=== PATIENT | female | born 1950 | race Caucasian/White ===

== ENCOUNTER 2021-02-01 18:52 | Emergency (ER) | payer MEDICARE, SELFPAY ==
--- NOTE | ~2021-02-01 | CT_ITS ---
EXAMINATION: CT brain wo con DATE: 02/01/2021 19:48 INDICATION: Face injury. Neck pain. TECHNIQUE: Computed tomography (CT) of the head was performed without intravenous contrast. The mA wa s adjusted according to patient size. Iterative reconstruction technique was employed. The dose-lengt h product was 605.33 mGy-cm. COMPARISON: None FINDINGS: There is a prominent perivascular space in the right basal ganglia. There is no intracrania l hemorrhage, acute infarction, or abnormal intracranial mass lesion. The ventricles are normal in si ze. The paranasal sinuses are clear. The orbits are normal. There is forehead soft tissue swelling. T he mastoid air cells are normal. IMPRESSION: 1. Normal brain. Reviewed, dictated and finalized at location A. IMPRESSION: 1. Normal brain.
--- NOTE | ~2021-02-01 | CT_ITS ---
EXAMINATION: CT facial & cervical spine wo DATE: 02/01/2021 19:51 INDICATION: Face injury. Neck pain. TECHNIQUE: Computed tomography (CT) of the maxillofacial region and cervical spine was performed with out intravenous contrast. Automated exposure control and iterative reconstruction technique were empl oyed. The dose-length product was 118.86 mGy-cm. COMPARISON: None FINDINGS: MAXILLOFACIAL CT: There is forehead soft tissue swelling. There is leftward deviation of the nasal septum. There is cer umen in the external auditory canals. Dental disease is noted. There are ununited fractures of the na srinivas bones. CERVICAL SPINE CT: There is 3 degrees dextrocurvature of cervical spine. There is 2 mm anterolisthesis of C5 on C6 and C 7 on T1. There is a benign bone island in T1 vertebral body. There is mildly decreased disc height at C2-C3 and severely decreased disc height from C3-C4 through C7-T1. The following disc levels are spe cifically discussed: C2-C3: There is mild right and moderate left uncovertebral joint osteoarthritis. There is mild right facet joint osteoarthritis. There is ankylosis of left facet joint. There is mild left neural foramin al stenosis. There is no central canal stenosis. C3-C4: There is severe bilateral uncovertebral joint osteoarthritis. There is severe bilateral facet joint osteoarthritis. There is mild bilateral neural foraminal stenosis. There is mild central canal stenosis. C4-C5: There is severe bilateral uncovertebral joint osteoarthritis. There is moderate right and lynn re left facet joint osteoarthritis. There is mild bilateral neural foraminal stenosis. There is mild central canal stenosis. C5-C6: There is severe bilateral uncovertebral joint osteoarthritis. There is severe bilateral facet joint osteoarthritis. There is moderate right and mild left neural foraminal stenosis. There is mild central canal stenosis. C6-C7: There is severe bilateral uncovertebral joint osteoarthritis. There is moderate right and mild left facet joint osteoarthritis. There is mild bilateral neural foraminal stenosis. There is mild ce ntral canal stenosis. C7-T1: There is mild right and severe left uncovertebral joint osteoarthritis. There is severe bilate ral facet joint osteoarthritis. There is mild bilateral neural foraminal stenosis. There is mild cent ral canal stenosis. IMPRESSION: 1. 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 2. Severe cervical spondylosis. Reviewed, dictated and finalized at location A.
[2021-02-01 18:53] VITALS: BP 151/88; PULSE 110; RESP 20; TEMP 36.4; O2SAT 100
--- NOTE | 2021-02-01 19:36 | ED.FALL ---
HPI - Fall General Chief Complaint: Fall Stated Complaint: fall, facial abrasions Time Seen by Provider: 02/01/21 19:04 Source: patient Mode of arrival: ambulatory Limitations: no limitations History of Present Illness HPI Narrative: Patient is a 70-year-old female who presents after a fall. Patient reports trip and fall hitting face on concrete. She denies LOC. She is not on anticoagulants. Patient noted to have multiple abrasions to face. Denies taking [id number] medications prior to arrival. Denies significant medical history. MD complaint: fall Related Data Home Medications Medication Instructions Recorded Confirmed No Home Medications 02/01/21 02/01/21 Allergies Allergy/AdvReac Type Severity Reaction Status Date / Time No Known Allergies Allergy Verified 02/01/21 19:02 Review of Systems Review of Systems: Narrative: CONSTITUTIONAL: Denies fever, chills, or sweats. EYES: Denies visual changes, redness, or discharge. ENT: Denies rhinorrhea, congestion, sore throat, or otalgia. CARDIOVASCULAR: Denies chest pain, palpitations, or edema. RESPIRATORY: Denies cough or dyspnea. GASTROINTESTINAL: Denies abdominal pain, nausea, vomiting, or diarrhea. GENITOURINARY: Denies dysuria or hematuria. SKIN: Reports tenderness to face MUSCULOSKELETAL: Denies back pain, joint pain, or myalgia. NEUROLOGIC: Denies headache, numbness, dizziness, or weakness. PSYCHIATRIC: Denies anxiety or depression. PMFSH Past Medical History Medical History (Updated 02/01/21 @ 20:33 by GUANACO Cruz) No significant past medical history Surgical History Surgical History (Updated 02/01/21 @ 19:40 by GUANACO Cruz) No significant past surgical history Social History Social History (Updated 02/01/21 @ 19:41 by GUANACO Cruz) Smoking status: Former smoker Alcohol intake: never Substance use: never Living arrangements: with family Gender identity (if verbalized by the patient): Female Comments At the time of signature, I have reviewed and agree with nursing past medical, surgical, social, and family history unless otherwise noted. Please see nursing chart for further information. There is no relevant family history pertinent to the presenting complaint. Exam Narrative: Exam Narrative: GENERAL: Well-appearing, well-nourished, and in no acute distress. HEAD: Normocephalic, atraumatic. EYES: EOMI. No redness or drainage. Conjunctiva are normal. ENT: Mucous membranes pink and moist. Nares clear. No rhinorrhea. TMs normal bilaterally. Throat normal. Uvula midline. NECK: AROM. Supple. No lymphadenopathy. CHEST: No respiratory distress. Clear to auscultation. HEART: Regular rate and rhythm. No murmur appreciated. Normal peripheral pulses. GI: Soft, nontender without rebound, or guarding. No distention. Bowel sounds normal in all quadrants. MUSCULOSKELETAL: No bony tenderness. EXTREMITIES: Normal range of motion. No edema. SKIN: Warm, dry, no rash. NEURO: No focal deficits. Alert and oriented x3. Gait steady. PSYCH: Normal affect. No signs of depression or anxiety. Course Vital Signs Vital signs: Vital Signs Temperature 36.4 C L 02/01/21 18:53 Pulse Rate 110 H 02/01/21 18:53 Respiratory Rate 20 02/01/21 18:53 Blood Pressure 151/88 H 02/01/21 18:53 Pulse Oximetry 100 02/01/21 18:53 Temperature 36.4 C L 02/01/21 18:53 Pulse Rate 71 02/01/21 19:59 Respiratory Rate 20 02/01/21 18:53 Blood Pressure 156/73 H 02/01/21 19:59 Pulse Oximetry 98 02/01/21 19:59 MDM - Fall MDM Narrative Medical decision making narrative: Patient CT shows no acute injury. Wounds cleansed, antibiotic ointment applied. Patient is stable for discharge to home with outpatient follow-up. Discussed patient's need for follow-up with PCP because of blood pressure as well. Patient agrees with plan of care. Differential Diagnosis Differential diagnosis: Likely other (Lac
[2021-02-01] MEDS: TETANUS,DIPHTHERIA,AC PERTUSSIS ADULT (0.5 ML) BOOSTRIX IM (19:56)
[2021-02-01 19:59] VITALS: BP 156/73; PULSE 71; O2SAT 98
== END 2021-02-01 20:46 | disposition home or self-care (01) ==
PROVIDERS: Emergency Provider Nurse Practitioner; PCP Family Medicine
DX: S00.81XA Abrasion of other part of head, initial encounter (principal); Z87.891 Personal history of nicotine dependence; Z23 Encounter for immunization; M47.812 Spondylosis without myelopathy or radiculopathy, cervical region; R93.0 Abnormal findings on diagnostic imaging of skull and head, not elsewhere classified; W01.0XXA Fall on same level from slipping, tripping and stumbling without subsequent striking against object, initial encounter; R03.0 Elevated blood-pressure reading, without diagnosis of hypertension
CPT/HCPCS: 70450; 70486; 72125; 90471; 90715; 99284

== ENCOUNTER 2022-02-12 17:45 | Inpatient (IN) | payer MEDICARE, SELFPAY ==
--- NOTE | ~2022-02-12 | XR_ITS ---
XR hip LT 1V DATE: 02/13/2022 10:15 INDICATION: Left hip for comparison for right ORIF intertrochanteric hip fracture TECHNIQUE: AP view COMPARISON: None FINDINGS: There is diffuse osteopenia. No fracture or dislocation, avascular necrosis or bone destruc tion of the right hip is detected. Calcified uterine fibroid is noted. IMPRESSION: Osteopenia No left hip fracture or dislocation Reviewed, dictated and finalized at location A.
--- NOTE | ~2022-02-12 | XR_ITS ---
XR surgery orthopedic DATE: 02/13/2022 10:14 INDICATION: ORIF right intertrochanteric fracture TECHNIQUE: 6 spot C-arm images of the right hip 162.7 seconds fluoroscopy time 30.92 COMPARISON: 02/12/2022 right hip FINDINGS: Intramedullary tonya of the right femur with 2 proximal interlocking compression screws exten ding into the right femoral head, providing near-anatomic position and alignment of previously report ed right clavicular fracture. IMPRESSION: Status post ORIF right intertrochanteric hip fracture Reviewed, dictated and finalized at Location A. Reviewed, dictated and finalized at location A.
--- NOTE | ~2022-02-12 | US_ITS ---
EXAMINATION: US carotid duplex BI DATE: 02/13/2022 13:39 INDICATION: Vertigo. Frequent falls. TECHNIQUE: Grayscale, color Doppler, and pulsed Doppler images of the cervical carotid arteries were obtained. The degree of vessel stenosis is placed in one of the following categories: normal, <50%, 5 0-69%, >=70% but less than near-occlusion, near-occlusion, or total occlusion. Note that percent sten osis relative to normal distal artery lumen diameter is indirectly measured from velocity measurement s as described by Aditya, et al. Radiology 2003; 229:[id number]. COMPARISON: None. FINDINGS: RIGHT: The right common carotid artery (CCA) peak systolic velocity (PSV) is 51 cm/s. The right internal car otid artery (ICA) PSV is 73 cm/s. The right ICA end-diastolic velocity (EDV) is 22 cm/s. The right IC A/CCA PSV ratio is 1.4. Grayscale and color Doppler images yield an estimate of <50% diameter reducti on from plaque in the ICA. The external carotid artery (ECA) PSV is 78 cm/s. There is antegrade flow in the right vertebral artery. LEFT: The left CCA PSV is 66 cm/s. The left ICA PSV is 69 cm/s. The left ICA EDV is 19 cm/s. The left ICA/C CA PSV ratio is 1.0. Grayscale and color Doppler images yield an estimate of <50% diameter reduction from plaque in the ICA. The ECA PSV is 94 cm/s. There is antegrade flow in the left vertebral artery. IMPRESSION: 1. <50% stenosis in the right internal carotid artery. 2. <50% stenosis in the left internal carotid artery. Reviewed, dictated and finalized at location A.
--- NOTE | ~2022-02-12 | XR_ITS ---
EXAM: XR hip RT 2V w AP pelvis DATE: 02/12/2022 19:42 HISTORY: hip fracture seen on cat scan . COMPARISON: CT abdomen and pelvis, same date. FINDINGS: Decreased mineralization. Comminuted intertrochanteric fracture of the right proximal femu r, with medial angulation. No lytic or blastic lesion. Joint spaces are maintained. No erosion or per iosteal change. Excreted contrast in the bladder. Calcified fibroid. IMPRESSION: Comminuted intertrochanteric fracture of the right proximal femur. Reviewed, dictated and finalized at location K.
--- NOTE | ~2022-02-12 | CT_ITS ---
EXAMINATION: CT abdomen pelvis w con DATE: 02/12/2022 18:48 INDICATION: R hip pain after fall TECHNIQUE: Computed tomography (CT) of the abdomen and pelvis was performed with 100 mL Omnipaque-300 intravenous contrast. Automated exposure control and iterative reconstruction technique were employe d. The dose-length product was 829.83 mGy-cm. COMPARISON: None. FINDINGS: Lower thorax: Coronary artery calcification. Minimal bibasilar atelectasis and left lower lung scar. Small hiatal hernia. Liver: Normal. Biliary/Gallbladder: Cholelithiasis. No bile duct dilation. Pancreas: No mass or duct dilation. Spleen: Normal. Adrenals:No mass. Kidneys: No mass, stone, or hydronephrosis. GI tract: No small or large bowel dilation. Normal appendix. Diverticulosis without diverticulitis. Mesentery/Peritoneum: No ascites, mass, or free air. Retroperitoneum: No mass. Atherosclerotic abdominal aortic and/or arterial calcifications. Pelvis: Pelvic organs are within normal limits. Fibroid uterus. Soft Tissues: Soft tissues and body wall unremarkable. Bones: Comminuted intertrochanteric fracture of the right proximal femur. IMPRESSION: Comminuted intertrochanteric fracture of the right proximal femur. No other acute finding in the abdo men or pelvis. Reviewed, dictated and finalized at location K. IMPRESSION: Comminuted intertrochanteric fracture of the right proximal femur. No other acu te finding in the abdomen or pelvis.
--- NOTE | ~2022-02-12 | XR_ITS ---
EXAMINATION: XR chest 1V Exam Date/Time: 02/12/2022 18:40 CDT HISTORY: fall Comparison: None available. RESULT: Lines, tubes, and devices: None. Lungs and pleura: Senescent change. Left lower lung scarring. Cardiomediastinal silhouette: Stable cardiomediastinal silhouette. Other: No acute osseous or upper abdominal finding. IMPRESSION: No acute cardiopulmonary process. Reviewed, dictated and finalized at location K.
[2022-02-12 17:49] VITALS: BP 183/84; PULSE 95; RESP 18; TEMP 36.7; O2SAT 99
--- NOTE | 2022-02-12 17:55 | ECG_ITS ---
Measurements Intervals [place] Rate: 76 P: -10 DE: 144 QRS: -43 QRSD: 110 T: -4 QT: 385 QTc: 435 Interpretive Statements SINUS RHYTHM LEFT AXIS DEVIATION LEFT VENTRICULAR HYPERTROPHY MINIMAL Q WAVES- HIGH LATERAL LEADS POOR R WAVE PROGRESSION, ANTERIOR LEADS BORDERLINE T WAVE ABNORMALITY- INFERIOR LEADS BORDERLINE ECG Electronically Signed On 02-12-2022 18:26:15 CDT by Nikita Olivares D.O.
[2022-02-12] MEDS: fentaNYL CITRATE INJ (*CRX) 100 MCG/2 ML VIAL 50 MCG IV PUSH (18:01)
[2022-02-12 18:08] LABS: Basophils Absolute Auto 0.1 K/mm3 (0.0-0.1); Basophils Percent Auto 0.7 % (0.2-1.2); Eosinophils Absolute Auto 0.1 K/mm3 (0-0.3); Hematocrit 47.2 % (37.0-47.0); Hemoglobin 15.4 g/dL (12.0-15.0); Immature Granulocyte Absolute 0.09 K/mm3 (0.00-0.031); Immature Granulocyte Percent A 0.7 % (0-0.5); Lymphocytes Absolute Auto 2.95 K/mm3 (0.9-3.2); Lymphocytes Percent Auto 23.4 % (18.3-44.2); Mean Corpuscular HGB Conc 32.6 g/dl (32-36); Mean Corpuscular Hemoglobin 29.8 pg (26-34); Mean Corpuscular Volume 91.5 fl (80-100); Mean Platelet Volume 9.8 fl (7.4-10.4); Monocytes Absolute Auto 0.5 K/mm3 (0.1-0.6); Monocytes Percent Auto 4.2 % (2.6-8.5); Neutrophils Absolute Auto 8.8 K/mm3 (1.3-6.7); Platelet Count Result 456 k/mm3 (150-375); Red Blood Count 5.16 M/mm3 (4.2-5.4); Red Cell Distribution Width 13.3 % (11.5-14.5); White Blood Count 12.6 K/mm3 (4.5-10.0)
--- NOTE | 2022-02-12 18:14 | ED.LOWEXIN ---
HPI - Extremity Injury (Lower) General Chief Complaint: Extremity Injury, Lower Stated Complaint: right hip fx/dislocation Time Seen by Provider: 02/12/22 17:49 Source: patient History of Present Illness HPI Narrative: Patient presents with right hip pain. Patient ports she was walking in the garage tripped over a fan landed on her right hip. She had immediate pain that is sharp, constant, worse with attempting to move her hip and radiates down her leg. She reports he has been able to move her hip significantly pain. Denies any focal numbness or weakness denies striking her head or any loss of consciousness denies use of any blood thinners. She has any neck or back pain. Patient denies any prodrome prior to the fall such as chest pain, lightheadedness, dizziness, shortness of breath Related Data Home Medications Medication Instructions Recorded Confirmed No Home Medications 02/01/21 02/01/21 Allergies Allergy/AdvReac Type Severity Reaction Status Date / Time No Known Allergies Allergy Verified 02/12/22 17:57 Review of Systems Review of Systems: CONSTITUTIONAL: Denies fever, chills, or sweats. EYES: Denies visual changes, redness, or discharge. ENT: Denies rhinorrhea, congestion, sore throat, or otalgia. CARDIOVASCULAR: Denies chest pain, palpitations, or edema. RESPIRATORY: Denies cough or dyspnea. GASTROINTESTINAL: Denies abdominal pain, nausea, vomiting, or diarrhea. GENITOURINARY: Denies dysuria or hematuria. SKIN: Denies rash or itching. MUSCULOSKELETAL: Denies back pain, or myalgia. NEUROLOGIC: Denies headache, numbness, dizziness, or weakness. PSYCHIATRIC: Denies anxiety or depression. All systems reviewed & are unremarkable except as noted in HPI and below PMFSH Past Medical History Medical History No significant past medical history Surgical History Surgical History No significant past surgical history Social History Social History Smoking status: Former smoker Alcohol intake: never Substance use: never Gender identity (if verbalized by the patient): Female Exam Narrative: GENERAL: Well-appearing, well-nourished, and in no acute distress. HEAD: Normocephalic, atraumatic. EYES: PERRLA and EOMI. ENT: Nares clear, no rhinorrhea or epistaxis. Mucous membranes moist. NECK: Supple. No masses. No JVD CHEST: Clear to auscultation. No respiratory distress. No wheezes rales or rhonchi HEART: Regular rate and rhythm. No murmur heard. Normal peripheral pulses. ABDOMEN: Soft, nontender, nondistended. EXTREMITIES: Diffuse pain to the right hip limited range of motion due to pain distal extremity with cap refill less than 2 seconds 2+ DP pulses sensation intact to light touch SKIN: Warm, dry, no rash. NEURO: No focal deficits. Alert and oriented x3. PSYCH: Normal mood and affect. Course Reevaluation(s) Reevaluation #1: Resting comfortably results and plan reviewed with patient. Patient is comfortable with inpatient plan. Case cussed with hospitalist team accepted for admission. Case also discussed with orthopedic team. Date: 02/12/22 Time: 20:01 Vital Signs Vital signs: Vital Signs Temperature 36.7 C 02/12/22 17:49 Pulse Rate 95 02/12/22 17:49 Respiratory Rate 18 02/12/22 17:49 Blood Pressure 183/84 H 02/12/22 17:49 Pulse Oximetry 99 02/12/22 17:49 Oxygen Delivery Room Air 02/12/22 17:49 Temperature 36.7 C 02/12/22 17:49 Pulse Rate 77 02/12/22 20:28 Respiratory Rate 18 02/12/22 20:28 Blood Pressure 120/70 02/12/22 20:28 Pulse Oximetry 95 02/12/22 20:28 Oxygen Delivery Room Air 02/12/22 17:49 MDM - Extremity Injury (Lower) MDM Narrative Medical decision making narrative: Patient presents after mechanical fall. Labs and imaging obtained in anticipation of fracture and need
[2022-02-12 18:19] LABS: Alanine Aminotransferase 38 U/L (6-35); Albumin Level 4.7 g/dL (3.5-5.1); Alkaline Phosphatase 107 U/L (38-126); Anion Gap 8 mmol/L (8-16); Aspartate Amino Transferase 36 U/L (14-36); Bilirubin,Total 0.4 mg/dL (0.2-1.3); Blood Urea Nitrogen 18 mg/dL (7-17); Calcium 10.4 mg/dL (8.4-10.2); Carbon Dioxide 24 mmol/L (22-30); Chloride 105 mmol/L (98-107); Estimated CRCL calculation 72 ml/min; Estimated Glomerular Filt Rate > 60; Glucose 111 mg/dL (65-110); Potassium 3.8 mmol/L (3.4-5.0); Prothrombin Time 12.5 Seconds (11.1-14.7); Sodium 137 mmol/L (137-145)
[2022-02-12 18:20] LABS: Partial Thromboplastin Time 23.6 SECONDS (22.3-36.8)
--- NOTE | 2022-02-12 18:40 | PC.NURSE ---
Pt to XRAY/CT scan via stretcher at this time.
[2022-02-12 18:54] VITALS: BP 174/88; PULSE 91; RESP 15; O2SAT 99
--- NOTE | 2022-02-12 19:11 | PC.NURSE ---
Assumed care of pt at this time. Pt alert, supine on stretcher. Requesting pain medications. Orders placed.
[2022-02-12] MEDS: MORPHINE SULFATE (*CRX) 4 MG/ML INJ IV PUSH (19:16)
--- NOTE | 2022-02-12 19:17 | PM.IMHP ---
H&P: HPI History of Present Illness Date/Time: 02/12/22 19:17 Chief Complaint: Fall. Narrative: This is a 71-year-old female with no significant past medical history presents to the emergency room after having mechanical fall no loss of consciousness was unable to get up on her on and had pain upon bearing weight and mobilization of the right leg.Has been in her usual state of health denies any dizziness, lightheadedness, syncope, near syncope, vertigo, shortness of breath, cough, sputum production, fevers, rigors chills, nausea, vomiting, abdominal pain, or diarrhea no leg swelling. Preliminary workup was significant for right hip fracture. Review of Systems Review of Systems: Mechanical fall, pain upon bearing weight on the right leg. Constitutional: Constitutional: Denies body ache(s), Denies chills, Denies fatigue, Denies fever(s), Denies malaise and Denies weakness Eyes: Eyes: Denies change in vision ENT: Denies dysphagia, Denies vertigo, Denies dizziness, Denies nasal congestion, Denies nasal discharge, Denies odynophagia and Denies disequilibrium Cardiovascular: Cardiovascular: Denies chest pain, Denies pedal edema, Denies leg edema, Denies lightheadedness, Denies radiating jaw, neck or arm pain, Denies palpitations and Denies dyspnea on exertion Respiratory: Respiratory: Denies chest congestion, Denies cough and Denies excessive phlegm production Gastrointestinal: Gastrointestinal: Denies abdominal pain, Denies dyspepsia, Denies heartburn, Denies nausea and Denies vomiting Genitourinary: Genitourinary: Denies dysuria Musculoskeletal: Musculoskeletal: Reports arthralgias and Reports limited range of motion (Right hip) Integumentary/Breasts: Skin/Breast: Denies rash Neurologic: Denies vertigo, Denies dizziness, Denies focal weakness and Denies Sensory deficit (Neuro) Psychiatric: Psychiatric: Reports no additional psychiatric complaints and Reports as per HPI Endocrine: Endocrine: Denies cold intolerance, Denies fatigue, Denies flushing, Denies heat intolerance, Denies polyphagia, Denies polydipsia, Denies polyuria and Denies palpitations Hematologic/Lymphatic: Hematologic/Lymphatic: Reports no additional hematologic/lymphatic complaints and Reports as per HPI Allergic/Immunologic: Allergic/Immunologic: Reports no additional allergic/immunologic complaints and Reports as per HPI PMFSH Past Medical History Medical History No significant past medical history Surgical History Surgical History No significant past surgical history Family History Family History (Updated 02/12/22 @ 22:14 by Essie Atwood RN) Other Unknown family medical history Social History Social History Smoking status: Never smoker Alcohol intake: never Substance use: never Substance use type: does not use Gender identity (if verbalized by the patient): Female Spiritual care concerns: No Meds Home Medications and Allergies Home Medications Medication Instructions Recorded Confirmed Type No Home Medications 02/01/21 02/12/22 History Allergies Allergy/AdvReac Type Severity Reaction Status Date / Time No Known Allergies Allergy Verified 02/12/22 17:57 Vital Signs Vital Signs - 24 hr 02/12/22 17:49 02/12/22 18:54 Temperature 98.0 F Pulse Rate 95 91 Respiratory Rate 18 15 Blood Pressure 183/84 H 174/88 H Pulse Oximetry 99 99 Oxygen Delivery Room Air Exam Const: General: comfortable, no acute distress, well developed, alert and awake Nutritional Appearance: average body habitus Orientation/consciousness: patient oriented x3 HENMT: Head: normal to inspection, normocephalic and atraumatic Ears: hearing grossly normal bilaterally Face and sinus: normal facial exam Eyes: General: appearance normal, both eyes and all related s
[2022-02-12 19:42] LABS: SARS-CoV-2 RNA PCR Negative
[2022-02-12 20:28] VITALS: BP 120/70; PULSE 77; RESP 18; O2SAT 95
[2022-02-12 21:10] VITALS: BP 144/68; PULSE 83; RESP 14; O2SAT 96
--- NOTE | 2022-02-12 21:20 | ADMGEN ---
This patient, Elizabeth Canela, was admitted to 2 Medical Room 242-01. Patient/family oriented to hospital policies and general routines including ID bracelet, bed and alarms, visiting hours, pain management, procedures, bathroom and other care routines, personal items, smoking policy, room service/diet, and visiting hours. Information on how to activate the Rapid Response Team has been discussed. Patient/Family are encouraged to report perceived risks to care and to ask questions if they do not understand what they are told or what they should do.
[2022-02-12 21:45] VITALS: BP 140/59; PULSE 81; RESP 16; TEMP 36.5; O2SAT 97
[2022-02-12 21:53] VITALS: PULSE 85
[2022-02-12] MEDS: SODIUM CHLORIDE 0.9% IV 1,000 ML 125 ML IV CONT (22:00)
[2022-02-13] VITALS (16 sets, daily range): BP systolic 111–156; BP diastolic 54–86; PULSE 71–102; RESP 12–20; TEMP 36.2–37.2; O2SAT 91–99
[2022-02-13] MEDS: MORPHINE SULFATE (*CRX) 4 MG/ML INJ IV PUSH ×2 (01:30→06:11)
[2022-02-13] MEDS: SODIUM CHLORIDE 0.9% IV 1,000 ML 125 ML IV CONT (06:10)
[2022-02-13 06:28] LABS: Appearance Urine Clear (Clear); Bilirubin Urine Negative (Negative); Blood Urine 2+ (Negative); Color Urine Yellow (Yellow); Glucose Urine UA Negative (Negative); Ketones Urine Negative (Negative); Leukocyte Esterase Ur Negative LEU/UL (Negative); Nitrate Urine Negative (Negative); Protein Urine Negative (Negative); Specific Grav Ur >= 1.030 (1.001-1.035); Urobilinogen Urine 0.2 mg/dL (<2.0); pH Urine 5.5 (5.0-9.0)
[2022-02-13 06:38] LABS: Mucus Urine Few /lpf; RBC Urine 21-50 /hpf (0-2); Squamous Epithelial Cell Urine Rare /hpf (Few)
--- NOTE | 2022-02-13 07:07 | PCOTNOTE ---
Will complete OT evaluation after ortho consult and WB status is entered.
[2022-02-13 07:27] LABS: Add Urine Microscopic? YES
--- NOTE | 2022-02-13 07:33 | PM.CNOR ---
Assessment and Plan Assessment and plan (1) Femur fracture: Qualifiers: Encounter type: initial encounter Femur location: unspecified portion of femur Fracture morphology: unspecified fracture morphology Fracture type: closed Laterality: right Qualified Code(s): S72.91XA - Unspecified fracture of right femur, initial encounter for closed fracture Code(s): S72.90XA - Unspecified fracture of unspecified femur, initial encounter for closed fracture Status: Acute Additional Plan Patient is a 71-year-old female that was admitted through the emergency room last evening with a comminuted 3 part right intertrochanteric hip fracture which occurred yesterday at her home when she tripped on the electric cord attached to a fan that was on the floor. I seated approximately 10 to go days ago she was seen in the emergency room after she tripped on the edge of a sidewalk and sustained facial abrasions. She denies any syncope. She used to walk for exercise distances every day and gave this up about a year ago. She does not use a gait aid she gets out into the community goes the store etc. Her past medical history seems very unremarkable. I have discussed with her that I suspect that she has osteoporosis and that this will need to be evaluated on an outpatient basis. Her laboratory studies are consistent with relative dehydration possibly with elevated hemoglobin above 15. Her Chem panel shows mild elevations. Creatinine 0.5. EKG findings showed LVH and some poor R-wave progression. She has never been a smoker. She has no history of DVT. On exam today she is alert and oriented. She is in no acute distress if she is holding still. Her right leg is shortened and externally rotated. There is no swelling the leg she has normal sensation she has a 2+ dorsalis pedis pulse palpable on the right leg. She denies any symptoms on the left side. She notes that her back is little bit achy from laying on her back for the last 12 hours but no pain in her back denies any neck or upper extremity symptoms. She is not believe she lost consciousness. She has been on a panel monitor overnight. I have spoken with Shruthi the hospitalist and she felt that patient would appear to be at lower risk and medically stable to proceed with surgery although it will be planned to obtain an echocardiogram after surgery for additional evaluation. I have discussed risks of surgery with her in detail. We discussed the risk of some degree of loss of normal function of the hip because of this type of fracture pattern with marked comminution of the greater trochanter which can lead to some decrease in hip function. Risk of infection and blood clots was reviewed with her. Risk of needing transfusion discussed. Risk of complications with surgery and anesthesia reviewed. I have discussed with her that there is risk of severe medical complications resulting from having hip fracture in having surgery to repair this such as heart attack stroke pulmonary embolism and . She understood and feels she is ready to proceed and we have planned on proceeding later this morning. A trochanteric nail device will be utilized to repair the fracture. History of Present Illness HPI Consult date: 02/13/22 Chief complaint: Hip Fracture PMFSH Past Medical History Medical History No significant past medical history Surgical History Surgical History No significant past surgical history Family History Family History (Updated 02/12/22 @ 22:14 by Essie Atwood RN) Other Unknown family medical history Social History Social History Smoking status: Never smoker Alcohol intake: never Substance use: never Substance use type: does not use Gender identity (if verbalized by the patient): Female Spiritual c
[2022-02-13 07:39] LABS: Basophils Absolute Auto 0.1 K/mm3 (0.0-0.1); Basophils Percent Auto 0.6 % (0.2-1.2); Eosinophils Absolute Auto 0.1 K/mm3 (0-0.3); Eosinophils Percent Auto 0.6 % (0-4.4); Hematocrit 37.7 % (37.0-47.0); Hemoglobin 12.7 g/dL (12.0-15.0); Immature Granulocyte Absolute 0.04 K/mm3 (0.00-0.031); Immature Granulocyte Percent A 0.4 % (0-0.5); Lymphocytes Absolute Auto 2.73 K/mm3 (0.9-3.2); Lymphocytes Percent Auto 25.2 % (18.3-44.2); Mean Corpuscular HGB Conc 33.7 g/dl (32-36); Mean Corpuscular Hemoglobin 30.5 pg (26-34); Mean Corpuscular Volume 90.6 fl (80-100); Mean Platelet Volume 9.9 fl (7.4-10.4); Monocytes Absolute Auto 1.2 K/mm3 (0.1-0.6); Monocytes Percent Auto 10.8 % (2.6-8.5); Neutrophils Absolute Auto 6.8 K/mm3 (1.3-6.7); Neutrophils Percent Auto 62.4 % (45.5-73.1); Platelet Count Result 372 k/mm3 (150-375); Red Blood Count 4.16 M/mm3 (4.2-5.4); Red Cell Distribution Width 13.2 % (11.5-14.5); White Blood Count 10.8 K/mm3 (4.5-10.0)
--- NOTE | 2022-02-13 07:45 | WPDHPUPDATE1 ---
History and Physical Update Update Date/Time: 02/13/22 07:45 History and Physical has been reviewed, including an updated exam of the patient. There are NO changes in the patient's condition. Risks, benefits, and alternatives have been discussed and questions answered. Patient agrees to proceed with procedure.
[2022-02-13 07:48] LABS: Anion Gap 2 mmol/L (8-16); Blood Urea Nitrogen 17 mg/dL (7-17); Calcium 9.3 mg/dL (8.4-10.2); Carbon Dioxide 23 mmol/L (22-30); Chloride 110 mmol/L (98-107); Estimated CRCL calculation 72 ml/min; Estimated Glomerular Filt Rate > 60; Glucose 108 mg/dL (65-110); Potassium 3.9 mmol/L (3.4-5.0); Sodium 135 mmol/L (137-145)
--- NOTE | 2022-02-13 07:52 | PM.IMPN ---
Progress Note: A&P Assessment and Plan (1) Femur fracture: Qualifiers: Encounter type: initial encounter Femur location: unspecified portion of femur Fracture morphology: unspecified fracture morphology Fracture type: closed Laterality: right Qualified Code(s): S72.91XA - Unspecified fracture of right femur, initial encounter for closed fracture Code(s): S72.90XA - Unspecified fracture of unspecified femur, initial encounter for closed fracture Status: Acute Assessment and Plan: -seen on XR -ortho consulted -will go to OR today with Dr. Disla for repair -medically stable and felt to be low risk for surgery -further management per ortho (2) Fall: Qualifiers: Encounter type: initial encounter Qualified Code(s): W19.XXXA - Unspecified fall, initial encounter Code(s): W19.XXXA - Unspecified fall, initial encounter Status: Acute Assessment and Plan: -somewhat concerning that she has now had 2 falls in the past 2 weeks -both falls seem to be mechanical in nature without any preceding symptoms -EKG shows poor R wave progression and LVH, some q waves in the high lateral leads. Will plan to obtain echo and carotid dopplers post operatively. -monitored on telemetry overnight with no events Subjective Date/time seen: 02/13/22 07:52 Interval history: Previously healthy 71 yo female admitted for R femur fracture. Pt states she tripped on a phone cord prior to the fall. Denies preceding symptoms including cp, sob, palpitations, dizziness, syncope. She was able to get up afterward but states it was incredibly painful to walk on it. She denies paresthesias. Discussed her recently having a fall approximately 2 weeks ago which was a bit concerning that she has now had 2 falls in 2 weeks without any significant past medical history. She states at that time she tripped on the edge of the concrete around her pool. Again, no preceding symptoms prior to that fall. She used to be quite active for most of her life with longs walks daily, however she slowed down approximately 1 year ago with no clear reason why. She tells me it is because she had lost enough weight. 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 Ambulates independently without any type of assistive devices. Review of Systems Review of Systems: All systems reviewed & are unremarkable except as noted in HPI and below Exam Narrative: General: No acute distress, non toxic appearing Eyes: PERRL, no scleral icterus HEENT: NCAT, external ears normal, MMM Respiratory: No respiratory distress, Lungs CTA bilaterally, no wheezing Cardiovascular: RRR, no murmur Abdominal: Soft, nontender, non distended, no rebound or guarding Musculoskeletal: RLE shortened and externally rotated Neurological: A/Ox3, speech clear, no facial asymmetry Skin: Warm, dry, no rashes Psychiatric: Normal affect, normal mood Objective Data Vital Signs Vital Signs: Vital Signs - 24 hr 02/12/22 17:49 02/12/22 18:54 02/12/22 20:28 Temperature 98.0 F Pulse Rate 95 91 77 Respiratory Rate 18 15 18 Blood Pressure 183/84 H 174/88 H 120/70 Pulse Oximetry 99 99 95 Oxygen Delivery Room Air 02/12/22 21:10 02/12/22 21:53 02/13/22 04:00 Temperature Pulse Rate 83 85 86 Respiratory Rate 14 Blood Pressure 144/68 H Pulse Oximetry 96 Oxygen Delivery 02/12/22 21:45 02/13/22 00:00 02/13/22 05:52 Temperature 97.7 F 98.6 F Pulse Rate 81 80 73 Respiratory Rate 16 16 Blood Pressure 140/59 L 131/61 Pulse Oximetry 97 98 Oxygen Delivery 02/13/22 07:43 Temperature 97.1 F L Pulse Rate 76 Respiratory Rate 16 Blood Pressure 150/54 H Pulse Oximetry 93 Oxygen Delivery Intake/Output Intake/Output: Intake & Output 02/10/22 02/11/22 02/12/22 02/13/22 23:59 23:59 23:59 23:59 Intake Total 100 1300 Output Total 450 Balance 100 850 Meds/Results Medications: A
--- NOTE | 2022-02-13 08:20 | WPDANESEPPF ---
Anes - Initial Pre Proc Eval Procedure: Operation Date: 02/13/22 08:30 Proposed Procedures p Intertrochanteric Nail(Right) - Luis Disla MD Date/Time: 02/13/22 08:20 Surgeon: Jailyn Velasquez PA-C Pre Op Diagnosis: Hip Fracture Patient Data Age: 71 Gender: F Height: 1.6 m Weight: 64 kg Last Vital Signs Temp 36.2 C L 02/13/22 07:43 Pulse 76 02/13/22 07:43 Resp 16 02/13/22 07:43 BP 150/54 H 02/13/22 07:43 Pulse Ox 93 02/13/22 07:43 O2 Del Method Room Air 02/12/22 17:49 Allergies Allergy/AdvReac Type Severity Reaction Status Date / Time No Known Allergies Allergy Verified 02/12/22 17:57 Home Medications Medication Instructions Recorded Confirmed Type No Home Medications 02/01/21 02/12/22 History Laboratory Tests 02/12/22 02/12/22 02/12/22 18:02 18:02 18:02 WBC 12.6 K/mm3 H K/mm3 (4.5-10.0) RBC 5.16 M/mm3 M/mm3 (4.2-5.4) Hgb 15.4 g/dL H g/dL (12.0-15.0) Hct 47.2 % H % (37.0-47.0) MCV 91.5 fl fl (80-100) MCH 29.8 pg pg (26-34) MCHC 32.6 g/dl g/dl (32-36) RDW 13.3 % % (11.5-14.5) Plt Count 456 k/mm3 H k/mm3 (150-375) MPV 9.8 fl fl (7.4-10.4) Immature Gran % (Auto) 0.7 % H % (0-0.5) Neut % (Auto) 70.0 % % (45.5-73.1) Lymph % (Auto) 23.4 % % (18.3-44.2) [place] % (Auto) 4.2 % % (2.6-8.5) Eos % (Auto) 1.0 % % (0-4.4) Baso % (Auto) 0.7 % % (0.2-1.2) Lymph # (Auto) 2.95 K/mm3 K/mm3 (0.9-3.2) [place] # (Auto) 0.5 K/mm3 K/mm3 (0.1-0.6) Eos # (Auto) 0.1 K/mm3 K/mm3 (0-0.3) Baso # (Auto) 0.1 K/mm3 K/mm3 (0.0-0.1) Abs Immat Gran (auto) 0.09 K/mm3 H K/mm3 (0.00-0.031) Absolute Neuts (auto) 8.8 K/mm3 H K/mm3 (1.3-6.7) Absolute Nucleated RBC 0.0 K/mm3 K/mm3 (0.0-0.012) Nucleated RBC % 0.0 % % (0.0-0.2) PT 12.5 Seconds Seconds (11.1-14.7) INR 1.0 APTT 23.6 SECONDS SECONDS (22.3-36.8) Sodium 137 mmol/L mmol/L (137-145) Potassium 3.8 mmol/L mmol/L (3.4-5.0) Chloride 105 mmol/L mmol/L (98-107) Carbon Dioxide 24 mmol/L mmol/L (22-30) Anion Gap 8 mmol/L mmol/L (8-16) BUN 18 mg/dL H mg/dL (7-17) Creatinine 0.50 mg/dL L mg/dL (0.7-1.0) Estim Creat Clear Calc 72 ml/min ml/min Estimated GFR > 60 (59 - ) Glucose 111 mg/dL H mg/dL (65-110) Calcium 10.4 mg/dL H mg/dL (8.4-10.2) Total Bilirubin 0.4 mg/dL mg/dL (0.2-1.3) AST 36 U/L U/L (14-36) ALT 38 U/L H U/L (6-35) Alkaline Phosphatase 107 U/L U/L (38-126) Total Protein 8.0 g/dL g/dL (6.3-8.2) Albumin 4.7 g/dL g/dL (3.5-5.1) Urine Color Urine Appearance Urine pH Ur Specific [place] Urine Protein Urine Glucose (UA) Urine Ketones Ur Blood (Man) Urine Nitrate Urine Bilirubin Urine Urobilinogen Leukocyte Esterase Rfl Urine RBC Urine WBC Ur Squamous Epith Cells Urine Mucus SARS-CoV-2 RNA (RT-PCR) Blood Type Antibody Screen 02/12/22 02/12/22 02/13/22 18:54 22:01 06:21 WBC RBC Hgb Hct MCV MCH MCHC RDW Plt Count MPV Immature Gran % (Auto) Neut % (Auto) Lymph % (Auto) [place]iple[place] % (Auto) Eos % (Auto) Baso % (Auto) Lymph # (Auto) [place]iple[place] # (Auto) Eos # (Auto) Baso # (Auto)
[2022-02-13] MEDS: ceFAZolin 2 GM/D5W 50 ML 2 GM/50 ML BAG IVPB (08:30)
[2022-02-13] MEDS: TRANEXAMIC ACID 1,000MG/ISO100 1,000 MG/100 ML BAG 200 MG IVPB (08:35)
[2022-02-13] MEDS: ceFAZolin SODIUM 1 GM VIAL (08:57)
--- NOTE | 2022-02-13 09:21 | PCPTNOTE ---
Patient to have ortho surgery, please re-order when appropriate with weight bearing status.
[2022-02-13] MEDS: LACTATED RINGERS 1,000 ML 30 ML IV CONT (10:25)
[2022-02-13] MEDS: KETOROLAC 15 MG/ML VIAL (*BKC) IV PUSH ×2 (10:35→12:39)
--- NOTE | 2022-02-13 10:53 | W.PM.PROC2 ---
Procedure Note - Detailed Date of Procedure 02/13/22 Pre-op Diagnosis Very comminuted right three-part intertrochanteric hip fracture Post-op Diagnosis Same Procedure Performed Open reduction internal fixation right intertrochanteric hip fracture with Arthrex ES trochanteric nail Surgeon Luis Disla MD [employer] Supervisor Sydney Anderson Description of Procedure Patient was brought to the operating room and general anesthesia was administered. We obtained intraoperative x-ray of the left hip AP view to better estimate the uninjured anatomy. The right hip was carefully scrubbed with the chlorhexidine cloth as well as thigh she was transferred to the fracture table. The right foot padded placed in the traction boot the left hip flexed abducted out of the way. She received 2 g of Ancef 1 g vancomycin 1 g of tranexamic acid preoperatively and the right hip was prepped draped usual fashion covered with Ioban. A 1-1/2 inch longitudinal incision was made proximal to greater trochanter. Guide pin was inserted down the femoral canal through the comminution at the tip of the greater trochanter and the starter awl used to make a starter hole through the fascia and tip of the greater trochanter. A long guide tonya was inserted the canal reamed to 12 mm which gave significant chatter. We could see in the intraoperative x-ray after fluoroscopic evaluation of the reduction before we started that there was extension of the greater trochanter fracture posterolaterally to the level of the greater trochanter and therefore we plan to use a long troch nail rather than short for improved stability. We chose the 125 degree neck angle by 10 mm Arthrex ES nail 33 cm in length. The proximal femur was reamed to 16.5 mm and the nail inserted under manual pressure the appropriate depth. Guide pin was inserted into the center of the femoral head on the lateral view and inferiorly on the AP view. A 2nd guide pin was inserted through the superior hole in the tonya for the anti rotation screw. The drill hole for the lag screw was made and 85 mm lag screw was placed without difficulty with the tip of the screw to about 6 mm of subchondral bone. This was all carried out with an asset protection assistant pushing on the left hip from the other side to avoid lateral distraction of the fracture fragments and maintain appropriate alignment. We looked at the lateral view and dialed in the optimal rotation of the neck by turning the lag screw handle and when this was reduced optimally we advanced the lag screw locking ring. We then removed the guidewire that was used as an anti rotation wire and with the drill drilled for a anti rotation screw superiorly which just fit under the superior neck so this was optimal. The 70 was a bit too long and we used the 65 which was the proper length. This obtained good purchase also. Finally after confirming alignment of the fracture and position the hardware proximally we placed the interlocking screw in the mid shaft portion of the tonya. This was done without difficulty and final fluoroscopic x-rays were obtained. The wounds were thoroughly irrigated with antibiotic solution. Fashion both incisions closed with 0 Vicryl and then subQ closed with 2-0 Vicryl and glue EBL was 150 cc. There were no complications. She was transferred postop recovery room in stable condition. Implants Arthrex troch nail Estimated Blood Loss -150.0 Urine Output -100.0
--- NOTE | 2022-02-13 11:03 | SUR.PHASEI ---
1102 - dr. saxena at bedside assessing and talking with pt.
[2022-02-13] MEDS: oxyCODONE HCL (*CRX) 2.5 MG TAB IR PO ×3 (14:26→20:27)
[2022-02-13] MEDS: SENNA/DOCUSATE SODIUM TABLET 2 TAB PO (16:47)
[2022-02-13] MEDS: ACETAMINOPHEN 500 MG TABLET 1000 MG PO (17:46)
[2022-02-14] VITALS (11 sets, daily range): BP systolic 103–132; BP diastolic 55–71; PULSE 69–97; RESP 14–18; TEMP 36.5–36.9; O2SAT 96–99
[2022-02-14] MEDS: ACETAMINOPHEN 500 MG TABLET 1000 MG PO ×5 (00:12→23:50)
[2022-02-14] MEDS: oxyCODONE HCL (*CRX) 2.5 MG TAB IR PO ×6 (03:07→20:31)
[2022-02-14 06:14] LABS: Basophils Percent Auto 0.4 % (0.2-1.2); Eosinophils Percent Auto 0.2 % (0-4.4); Hematocrit 29.7 % (37.0-47.0); Hemoglobin 9.7 g/dL (12.0-15.0); Immature Granulocyte Absolute 0.04 K/mm3 (0.00-0.031); Immature Granulocyte Percent A 0.4 % (0-0.5); Lymphocytes Absolute Auto 2.32 K/mm3 (0.9-3.2); Lymphocytes Percent Auto 22.2 % (18.3-44.2); Mean Corpuscular HGB Conc 32.7 g/dl (32-36); Mean Corpuscular Hemoglobin 30.3 pg (26-34); Mean Corpuscular Volume 92.8 fl (80-100); Mean Platelet Volume 10.6 fl (7.4-10.4); Monocytes Absolute Auto 1.2 K/mm3 (0.1-0.6); Monocytes Percent Auto 11.4 % (2.6-8.5); Neutrophils Absolute Auto 6.9 K/mm3 (1.3-6.7); Neutrophils Percent Auto 65.4 % (45.5-73.1); Platelet Count Result 313 k/mm3 (150-375); Red Cell Distribution Width 13.2 % (11.5-14.5); White Blood Count 10.5 K/mm3 (4.5-10.0)
[2022-02-14 06:25] LABS: Anion Gap 2 mmol/L (8-16); Blood Urea Nitrogen 19 mg/dL (7-17); Calcium 9.5 mg/dL (8.4-10.2); Carbon Dioxide 25 mmol/L (22-30); Chloride 108 mmol/L (98-107); Estimated CRCL calculation 72 ml/min; Estimated Glomerular Filt Rate > 60; Glucose 124 mg/dL (65-110); Potassium 3.7 mmol/L (3.4-5.0); Sodium 135 mmol/L (137-145)
[2022-02-14 07:28] LABS: Vitamin D 25 Hydroxy < 12.8 ng/mL
--- NOTE | 2022-02-14 08:48 | PM.PNORT ---
Progress Note: A&P Additional Plan 1.: Patient is now postoperative day 1. After internal fixation of comminuted right intertrochanteric hip fracture. She has been doing surprisingly well. She was up moving around yesterday in the room and when I walked in today she was standing with the therapist about to sit on the commode. I reiterated to her that we want her to be approximately 50% weight-bearing and she states she is being careful to follow that. She is completely alert and oriented. She has no complaints her pain is well controlled today. Her hemoglobin is down to 9.7 this morning. It was 12.4 yesterday morning before surgery. I think this represents expected acute blood loss anemia with this type of fracture. Her initial admission hemoglobin was greater than 15 in I think that reflected a nominal S elevation due to dehydration. Her creatinine is 0.5. Her vital signs have been stable. Oxygen saturation on room air 98-100%. Her 25 hydroxy vitamin-D level was less than 12.8. I am going to order ergo calciferol 63453 units twice a week for the next 4 weeks. I have ordered Citracal plus D 1 tablet twice daily. She is going to need to have an osteoporosis workup on an outpatient basis with bone density test. I suspect she does have significant osteoporosis based on her radiographs of her uninjured left hip. Patient will continue to mobilize and we will make a determination as to whether rehab placement will be necessary. She normally lives at home with her daughter. Subjective Subjective Date/Time Seen: 02/14/22 08:48 Objective Data Vital Signs Vital Signs: Vital Signs - 24 hr 02/13/22 10:25 02/13/22 10:40 02/13/22 10:55 Temperature 37.2 C Pulse Rate 78 80 83 Respiratory Rate 16 14 16 Blood Pressure 141/86 H 155/79 H 156/68 H Pulse Oximetry 97 99 97 Oxygen Delivery Simple Face Mask Simple Face Mask Nasal Cannula Oxygen Flow Rate 8 8 2 02/13/22 11:10 02/13/22 11:25 02/13/22 12:00 Temperature 36.9 C Pulse Rate 89 79 102 H Respiratory Rate 12 14 16 Blood Pressure 154/74 H 146/68 H 146/79 H Pulse Oximetry 97 94 91 Oxygen Delivery Nasal Cannula Room Air Oxygen Flow Rate 2 02/13/22 12:25 02/13/22 13:25 02/13/22 14:07 Temperature 36.9 C 36.9 C Pulse Rate 84 86 Respiratory Rate 16 16 Blood Pressure 140/55 L 121/65 Pulse Oximetry 94 93 Oxygen Delivery Room Air Oxygen Flow Rate 02/13/22 14:35 02/13/22 16:21 02/13/22 18:38 Temperature 36.4 C Pulse Rate 101 H Respiratory Rate 20 Blood Pressure 111/54 L Pulse Oximetry 92 96 Oxygen Delivery Room Air Room Air Oxygen Flow Rate 02/13/22 20:00 02/13/22 20:45 02/14/22 01:05 Temperature 36.7 C 36.9 C Pulse Rate 91 81 Respiratory Rate 18 18 Blood Pressure 131/60 103/55 L Pulse Oximetry 94 97 Oxygen Delivery Room Air Oxygen Flow Rate 02/14/22 04:00 02/14/22 05:41 Temperature 36.8 C Pulse Rate 69 72 Respiratory Rate 16 Blood Pressure 114/55 L Pulse Oximetry 96 Oxygen Delivery Oxygen Flow Rate Intake/Output Intake/Output: Intake & Output 02/11/22 02/12/22 02/13/22 02/14/22 23:59 23:59 23:59 23:59 Intake Total 100 2290 350 Output Total 450 250 Balance 100 1840 100 Meds/Results Medications: Active Medications Generic Name Dose Route Start Last Admin Trade Name Bijuq PRN Reason Stop Dose Admin Acetaminophen 1,000 mg 02/13/22 18:00 02/14/22 06:32 Acetaminophen 500 Mg Tablet PO 1,000 mg Q6H SHERLEY Administration Apixaban 2.5 mg 02/14/22 09:00 Apixaban 2.5 Mg Tablet PO Q12HR [facility] Sodium Chloride 1,000 mls @ 125 mls/hr 02/13/22 11:40 02/13/22 17:24 Normal Saline Iv IV CONT Not Given .Q8H SHERLEY Morphine Sulfate 1 mg 02/13/22 11:40 Morphine Sulfate (*Crx) 2 Mg/Ml Inj IV PUSH Q1H PRN Pain Rated 7-10 Naloxone HCl 0.1 mg 02/13/22 11:40 Naloxone Hcl 0.4 Mg/Ml Vial IV PUSH Q2M PRN Opiate Reversal Oxycodone HCl 2.5
--- NOTE | 2022-02-14 09:17 | PM.IMPN ---
Progress Note: A&P Assessment and Plan (1) Femur fracture: Qualifiers: Encounter type: initial encounter Femur location: unspecified portion of femur Fracture morphology: unspecified fracture morphology Fracture type: closed Laterality: right Qualified Code(s): S72.91XA - Unspecified fracture of right femur, initial encounter for closed fracture Code(s): S72.90XA - Unspecified fracture of unspecified femur, initial encounter for closed fracture Status: Acute Assessment and Plan: -seen on XR -ortho consulted -medically stable and felt to be low risk for surgery -POD#1 s/p ORIF R hip w/ Dr. Disla -discharge planning/DVT prophylaxis per ortho -doing well w/ PT/OT (2) Fall: Qualifiers: Encounter type: initial encounter Qualified Code(s): W19.XXXA - Unspecified fall, initial encounter Code(s): W19.XXXA - Unspecified fall, initial encounter Status: Acute Assessment and Plan: -somewhat concerning that she has now had 2 falls in the past 2 weeks -both falls seem to be mechanical in nature without any preceding symptoms -EKG shows poor R wave progression and LVH, some q waves in the high lateral leads. Will plan to obtain echo and carotid dopplers post operatively. -monitored on telemetry overnight with no events (3) Anemia: Code(s): D64.9 - Anemia, unspecified Status: Acute Assessment and Plan: -on arrival was likely hemoconcentrated w/ Hgb of 15.4 -after receiving IVF overnight her Hgb was 12.7, likely dilutional -after surgery, her Hgb is now 9.7 which I suspect to be acute blood loss anemia secondary to surgery yesterday -will recheck H/H this afternoon and then again tomorrow AM Subjective Date/time seen: 02/14/22 09:17 Interval history: Previously healthy 71 yo female admitted for R femur fracture. POD#1 s/p ORIF R hip. Doing well. Has intermittent soreness/ache in the hip but otherwise no complaints. Doing well with therapy. No cp/sob. No issues w/ urination/N/V/abd pain. Review of Systems Review of Systems: All systems reviewed & are unremarkable except as noted in HPI and below Exam Narrative: General: No acute distress, non toxic appearing Eyes: PERRL, no scleral icterus HEENT: NCAT, external ears normal, MMM Respiratory: No respiratory distress, Lungs CTA bilaterally, no wheezing Cardiovascular: RRR, no murmur Abdominal: Soft, nontender, non distended, no rebound or guarding Musculoskeletal: no LE edema, DP/PT pulses 2+, hip dressing c/d/i Neurological: A/Ox3, speech clear, no facial asymmetry Skin: Warm, dry, no rashes Psychiatric: Normal affect, normal mood Objective Data Vital Signs Vital Signs: Vital Signs - 24 hr 02/13/22 10:25 02/13/22 10:40 02/13/22 10:55 Temperature 98.9 F Pulse Rate 78 80 83 Respiratory Rate 16 14 16 Blood Pressure 141/86 H 155/79 H 156/68 H Pulse Oximetry 97 99 97 Oxygen Delivery Simple Face Mask Simple Face Mask Nasal Cannula Oxygen Flow Rate 8 8 2 02/13/22 11:10 02/13/22 11:25 02/13/22 12:00 Temperature 98.5 F Pulse Rate 89 79 102 H Respiratory Rate 12 14 16 Blood Pressure 154/74 H 146/68 H 146/79 H Pulse Oximetry 97 94 91 Oxygen Delivery Nasal Cannula Room Air Oxygen Flow Rate 2 02/13/22 12:25 02/13/22 13:25 02/13/22 14:07 Temperature 98.4 F 98.4 F Pulse Rate 84 86 Respiratory Rate 16 16 Blood Pressure 140/55 L 121/65 Pulse Oximetry 94 93 Oxygen Delivery Room Air Oxygen Flow Rate 02/13/22 14:35 02/13/22 16:21 02/13/22 18:38 Temperature 97.6 F Pulse Rate 101 H Respiratory Rate 20 Blood Pressure 111/54 L Pulse Oximetry 92 96 Oxygen Delivery Room Air Room Air Oxygen Flow Rate 02/13/22 20:00 02/13/22 20:45 02/14/22 01:05 Temperature 98.1 F 98.4 F Pulse Rate 91 81 Respiratory Rate 18 18 Blood Pressure 131/60 103/55 L Pulse Oximetry 94 97 Oxygen Delivery Room Air Oxygen Flow Rat
[2022-02-14] MEDS: polyethylene glycoL 3350 17 GM POWD.PACK PO (09:46)
[2022-02-14] MEDS: APIXABAN 2.5 MG TABLET PO ×2 (09:46→20:31)
[2022-02-14] MEDS: SENNA/DOCUSATE SODIUM TABLET 2 TAB PO ×2 (09:46→16:56)
[2022-02-14] MEDS: ERGOCALCIFEROL 50,000 UNIT CAPSULE 50000 UNITS PO (09:56)
[2022-02-14 11:23] LABS: Hematocrit 28.9 % (37.0-47.0); Hemoglobin 9.4 g/dL (12.0-15.0)
[2022-02-14 15:48] LABS: Hematocrit 28.4 % (37.0-47.0); Hemoglobin 9.3 g/dL (12.0-15.0)
[2022-02-14 20:40] LABS: Hematocrit 27.6 % (37.0-47.0); Hemoglobin 8.9 g/dL (12.0-15.0)
[2022-02-15] VITALS (7 sets, daily range): BP systolic 110–148; BP diastolic 57–68; PULSE 67–87; RESP 16–17; TEMP 36.6–37.2; O2SAT 96–99
--- NOTE | 2022-02-15 | ECHO_ITS ---
Patient Info Name: Elizabeth Canela Age: 71 years : 1950 Gender: Female Ht: 63 in Wt: 141 lbs BSA: 1.70 m2 HR: 94 bpm BP: 110 / 60 mmHg Heart Rhythm: Sinus Rhythm Exam Date: 02/15/2022 9:14 AM Exam Location: [facility] Patient Status: Inpatient Admit Date: 02/13/2022 Staff Ordering Physician: Jailyn Velasquez PA-C Entry Level Project Engineer: Navin Nicholson RDCS, RT Attending Provider: Bettie Dejesus Referring Physician: Eva GOODMAN; Exam Type: CA echo doppler color flow Study Info Indications I42.2 - Other hypertrophic cardiomyopathy Complete two-dimensional, color flow and Doppler transthoracic echocardiogram is performed. Strain analysis performed. Summary 1. Complete two-dimensional, color flow and Doppler transthoracic echocardiogram is performed. 2. Left ventricular chamber dimension is normal. 3. There is mild concentric increased left ventricular wall thickness. 4. Left ventricular systolic function is normal, estimated at 65-70%. 5. No valvular dysfunction noted on Doppler. Left Ventricle Left ventricular chamber dimension is normal. Left ventricular systolic function is normal, estimated at 65-70%. There is mild concentric increased left ventricular wall thickness. The left ventricular diastolic function is grade I diastolic dysfunction. Right Ventricle Right ventricular chamber dimension is normal. Left Atria Left atrial chamber dimension is normal. Right Atria Right atrial chamber dimension is normal. Aortic Valve The aortic valve is normal. Pulmonic Valve The pulmonic valve is normal. Mitral Valve The mitral valve has normal leaflets. Tricuspid Valve The tricuspid valve leaflets are normal. Pericardium/Pleural The pericardium appears normal. Aorta The aortic root size at the sinus of Valsalva is normal. Left Ventricular Outflow Tract Name Value Normal LVOT 2D LVOT Diameter 2.0 cm LVOT Doppler LVOT Peak Gradient 4 mmHg LVOT Mean Gradient 2 mmHg LVOT VTI 18 cm LVOT VTI/AV VTI Ratio 0.7 LVOT Stroke Volume 57 ml LVOT CO 4.8 l/min LVOT CI 2.8 l/min/m2 Mitral Valve Name Value Normal MV Doppler MV Decel Blanco 329 cm/s2 MV PHT 58 ms MV Area (PHT) 3.8 cm2 4.0-5.0 MV Diastolic Function MV E Peak Velocity 66 cm/s MV A Peak Velocity 116 cm/s MV E/A 0.6 MV Decel Time 201 ms CARMEN Reyna
[2022-02-15] MEDS: oxyCODONE HCL (*CRX) 2.5 MG TAB IR PO ×6 (00:41→20:57)
[2022-02-15 02:42] LABS: Basophils Absolute Auto 0.1 K/mm3 (0.0-0.1); Basophils Percent Auto 0.7 % (0.2-1.2); Eosinophils Absolute Auto 0.2 K/mm3 (0-0.3); Eosinophils Percent Auto 1.8 % (0-4.4); Hematocrit 27.2 % (37.0-47.0); Immature Granulocyte Absolute 0.05 K/mm3 (0.00-0.031); Immature Granulocyte Percent A 0.5 % (0-0.5); Lymphocytes Absolute Auto 2.87 K/mm3 (0.9-3.2); Lymphocytes Percent Auto 27.6 % (18.3-44.2); Mean Corpuscular HGB Conc 33.1 g/dl (32-36); Mean Corpuscular Hemoglobin 30.9 pg (26-34); Mean Corpuscular Volume 93.5 fl (80-100); Mean Platelet Volume 9.8 fl (7.4-10.4); Monocytes Absolute Auto 0.9 K/mm3 (0.1-0.6); Monocytes Percent Auto 8.8 % (2.6-8.5); Neutrophils Absolute Auto 6.3 K/mm3 (1.3-6.7); Neutrophils Percent Auto 60.6 % (45.5-73.1); Platelet Count Result 264 k/mm3 (150-375); Red Blood Count 2.91 M/mm3 (4.2-5.4); Red Cell Distribution Width 13.6 % (11.5-14.5); White Blood Count 10.4 K/mm3 (4.5-10.0)
[2022-02-15 02:53] LABS: Anion Gap 2 mmol/L (8-16); Blood Urea Nitrogen 17 mg/dL (7-17); Calcium 9.7 mg/dL (8.4-10.2); Carbon Dioxide 26 mmol/L (22-30); Chloride 109 mmol/L (98-107); Estimated CRCL calculation 88 ml/min; Estimated Glomerular Filt Rate > 60; Glucose 99 mg/dL (65-110); Potassium 3.8 mmol/L (3.4-5.0); Sodium 137 mmol/L (137-145)
[2022-02-15] MEDS: ACETAMINOPHEN 500 MG TABLET 1000 MG PO ×3 (05:12→17:10)
--- NOTE | 2022-02-15 06:22 | PM.PNORT ---
Subjective Subjective Date/Time Seen: 02/15/22 06:22 Postop day 2 patient is alert. Her vital signs are stable. Hemoglobin is 9.0 this morning which appears to be stable from yesterday. She is having minimal discomfort. She states it is a little bit difficult to get up out of bed when she is up on the walker she is able to get around fairly well with physical therapy. Dressing is dry. Patient is complaining of no significant pain. Patient is progressing well with physical therapy. She does have a daughter that she lives with and if patient is doing well physical therapy I think would be reasonable for her to go home with her daughter. If he is having a difficult time with the daughter does not feel comfortable with patient coming home would suggest rehab facility. Objective Data Vital Signs Vital Signs: Vital Signs - 24 hr 02/14/22 10:20 02/14/22 09:50 02/14/22 08:00 Temperature 36.6 C Pulse Rate 81 97 Respiratory Rate 16 Blood Pressure 132/56 L Pulse Oximetry 96 Oxygen Delivery Room Air 02/14/22 12:00 02/14/22 14:36 02/14/22 16:00 Temperature 36.5 C Pulse Rate 97 86 73 Respiratory Rate 14 Blood Pressure 110/59 L Pulse Oximetry 98 Oxygen Delivery 02/14/22 18:06 02/14/22 19:37 02/14/22 20:00 Temperature 36.9 C 36.7 C Pulse Rate 86 79 72 Respiratory Rate 16 16 Blood Pressure 113/71 120/60 Pulse Oximetry 99 98 Oxygen Delivery 02/14/22 20:00 02/15/22 00:42 02/15/22 00:00 Temperature 36.6 C Pulse Rate 84 77 Respiratory Rate 16 Blood Pressure 112/68 Pulse Oximetry 97 Oxygen Delivery Room Air 02/15/22 04:00 02/15/22 04:31 Temperature 36.8 C Pulse Rate 67 73 Respiratory Rate 16 Blood Pressure 110/60 Pulse Oximetry 96 Oxygen Delivery Intake/Output Intake/Output: Intake & Output 02/12/22 02/13/22 02/14/22 02/15/22 23:59 23:59 23:59 23:59 Intake Total 100 2290 1560 300 Output Total 450 250 200 Balance 100 1840 1310 100 Meds/Results Medications: Active Medications Generic Name Dose Route Start Last Admin Trade Name Freq PRN Reason Stop Dose Admin Acetaminophen 1,000 mg 07/03/22 18:00 02/15/22 05:12 Acetaminophen 500 Mg Tablet PO 1,000 mg Q6H SHERLEY Administration Apixaban 2.5 mg 02/14/22 09:00 02/14/22 20:31 Apixaban 2.5 Mg Tablet PO 2.5 mg Q12HR SHERLEY Administration Calcium Citrate 1 tablet 02/14/22 09:25 02/14/22 16:56 Calcium Citrate 315 Mg/Vitamin D 250 Units Tab PO 1 tablet BID SHERLEY Administration Ergocalciferol 50,000 unit 02/14/22 09:30 02/14/22 09:56 Ergocalciferol 50,000 Unit Capsule PO 03/11/22 09:31 50,000 unit MOFR SHERLEY Administration Morphine Sulfate 1 mg 02/13/22 11:40 Morphine Sulfate (*Crx) 2 Mg/Ml Inj IV PUSH Q1H PRN Pain Rated 7-10 Naloxone HCl 0.1 mg 02/13/22 11:40 Naloxone Hcl 0.4 Mg/Ml Vial IV PUSH Q2M PRN Opiate Reversal Oxycodone HCl 2.5 mg 02/13/22 13:00 02/15/22 05:12 Oxycodone Hcl (*Crx) 2.5 Mg Tab Ir PO 2.5 mg Q4HR SHERLEY Administration Oxycodone HCl 2.5 mg 02/13/22 11:40 Oxycodone Hcl (*Crx) 2.5 Mg Tab Ir PO Q4H PRN Pain Rated 7-10 Perflutren Lipid Microsphere 0 ml 02/13/22 08:09 Perflutren Lipid Microspheres 1.5 Ml Vial Diluted To 10 Ml Total Volume IV PUSH ONCE PRN adequate visualization Protocol Polyethylene Glycol 17 gm 02/14/22 09:00 02/14/22 09:46 Polyethylene Glycol 3350 17 Gm Powd.Pack PO 17 gm QAM SHERLEY Administration Senna/Docusate Sodium 2 tab 02/13/22 17:00 02/14/22 16:56 Senna/Docusate Sodium Tablet PO 2 tab BID SHERLEY Administration Radiology Results: ITS Impressions Chest X-Ray 02/12/22 19:03 IMPRESSION: No acute cardiopulmonary process. Abdomen/Pelvis CT 02/12/22 19:06 IMPRESSION: Comminuted intertrochanteric fracture of the right proximal femur. No other acute finding in the abdomen or pelvis. Hip/Pelvis X-Ray
--- NOTE | 2022-02-15 07:20 | PCOTNOTE ---
The OT treatment was not completed on 02/14/22. Will continue OT per plan of care.
--- NOTE | 2022-02-15 08:20 | PCPTNOTE ---
Patient refused treatment this session due to right hip pain. RN notified and reported she has pain medication for patient.
[2022-02-15] MEDS: APIXABAN 2.5 MG TABLET PO ×2 (08:46→20:57)
[2022-02-15] MEDS: polyethylene glycoL 3350 17 GM POWD.PACK PO (08:47)
[2022-02-15 08:52] LABS: Hematocrit 30.5 % (37.0-47.0); Hemoglobin 9.6 g/dL (12.0-15.0)
[2022-02-15] MEDS: SENNA/DOCUSATE SODIUM TABLET 2 TAB PO ×2 (08:53→17:10)
--- NOTE | 2022-02-15 09:40 | PM.IMPN ---
Progress Note: A&P Assessment and Plan (1) Femur fracture: Qualifiers: Encounter type: initial encounter Femur location: unspecified portion of femur Fracture morphology: unspecified fracture morphology Fracture type: closed Laterality: right Qualified Code(s): S72.91XA - Unspecified fracture of right femur, initial encounter for closed fracture Code(s): S72.90XA - Unspecified fracture of unspecified femur, initial encounter for closed fracture Status: Acute Assessment and Plan: -seen on XR -ortho consulted -medically stable and felt to be low risk for surgery -POD#2 s/p ORIF R hip w/ Dr. Disla - Continue Eliquis for anticoagulation. -discharge planning/DVT prophylaxis per ortho -Refused PT this AM secondary to her pain level. - Pt. is apprehensive about where she should go upon discharge, home vs. rehab. and becomes tearful when discussing plan. - Appreciate care coordination's assistance in discharge planning. (2) Fall: Qualifiers: Encounter type: initial encounter Qualified Code(s): W19.XXXA - Unspecified fall, initial encounter Code(s): W19.XXXA - Unspecified fall, initial encounter Status: Acute Assessment and Plan: -somewhat concerning that she has now had 2 falls in the past 2 weeks -both falls seem to be mechanical in nature without any preceding symptoms, with the first being tripping on a crack in the concrete by the pool and the second being a trip over a portable fan cord. -EKG shows poor R wave progression and LVH, some q waves in the high lateral leads. - ECHO was performed and results are pending. Carotid dopplers were performed and show <50% stenosis in both the Right and Left ICA's. - OK to Discontinue Telemetry. (3) Anemia: Code(s): D64.9 - Anemia, unspecified Status: Acute Assessment and Plan: -on arrival was likely hemoconcentrated w/ Hgb of 15.4 -after receiving IVF overnight her Hgb was 12.7, likely dilutional -after surgery, her Hgb is now 9.7 which I suspect to be acute blood loss anemia secondary to surgery yesterday -will recheck H/H this afternoon and then again tomorrow AM - Hgb stable in past 24 hours, trendin.4-->9.3-->8.9-->9.0. Low suspicion for active bleeding. Subjective Date/time seen: 02/15/22 09:00 This pt. was examined at the bedside today in interval assessment. She is tearful when asked how she is feeling. She reports that she is having some pain in the right hip. She denies any distal numbness or tingling and she has no other complaints to report today. She refused PT today secondary to the pain she is having in her hip. I briefly discussed with her the plans for discharge and whether or not she felt that she could return home or not. She advised that she was unsure of whether or not she could do it right now, and is agreeable to seeing how things go with therapy. Again, pt was tearful when discussing the plans for discharge. Review of Systems Review of Systems: All systems were reviewed and are unremarkable with exception of what is mentioned in HPI. Exam Narrative: General: No acute distress, non toxic appearing Eyes: PERRL, no scleral icterus HEENT: NCAT, external ears normal, MMM Respiratory: No respiratory distress, Lungs CTA bilaterally, no wheezing Cardiovascular: RRR, no murmur Abdominal: Soft, nontender, non distended, no rebound or guarding Musculoskeletal: no LE edema, DP/PT pulses 2+, hip dressing c/d/i Neurological: A/Ox3, speech clear, no facial asymmetry Skin: Warm, dry, no rashes Psychiatric: depressed affect and tearful. Objective Data Vital Signs Vital Signs: Vital Signs - 24 hr 02/14/22 10:20 02/14/22 09:50 02/14/22 12:00 Temperature 97.9 F Pulse Rate 81 97 Respiratory Rate 16 Blood Pressure 132/56 L Pulse Oximetry 96 Oxygen Delivery Room Air 02/14/22 14:36 02/14/22 16:00 02/14/22 18:06 Temperature 97.7 F 98.4 F Pulse Rate 86 73 86 R
[2022-02-15 14:45] LABS: Hematocrit 28.7 % (37.0-47.0); Hemoglobin 9.4 g/dL (12.0-15.0)
[2022-02-15 20:09] LABS: Hematocrit 27.5 % (37.0-47.0); Hemoglobin 8.9 g/dL (12.0-15.0)
[2022-02-16] MEDS: ACETAMINOPHEN 500 MG TABLET 1000 MG PO ×5 (00:28→23:16)
[2022-02-16] MEDS: oxyCODONE HCL (*CRX) 2.5 MG TAB IR PO ×8 (00:32→23:16)
[2022-02-16 03:25] VITALS: BP 124/40; PULSE 74; RESP 17; TEMP 36.3; O2SAT 98
[2022-02-16 06:12] LABS: Basophils Absolute Auto 0.1 K/mm3 (0.0-0.1); Basophils Percent Auto 0.9 % (0.2-1.2); Eosinophils Absolute Auto 0.3 K/mm3 (0-0.3); Eosinophils Percent Auto 2.9 % (0-4.4); Hematocrit 27.5 % (37.0-47.0); Immature Granulocyte Absolute 0.02 K/mm3 (0.00-0.031); Immature Granulocyte Percent A 0.2 % (0-0.5); Lymphocytes Absolute Auto 2.73 K/mm3 (0.9-3.2); Lymphocytes Percent Auto 31.4 % (18.3-44.2); Mean Corpuscular HGB Conc 32.7 g/dl (32-36); Mean Corpuscular Hemoglobin 30.4 pg (26-34); Mean Corpuscular Volume 92.9 fl (80-100); Mean Platelet Volume 10.2 fl (7.4-10.4); Monocytes Absolute Auto 0.7 K/mm3 (0.1-0.6); Monocytes Percent Auto 8.2 % (2.6-8.5); Neutrophils Absolute Auto 4.9 K/mm3 (1.3-6.7); Neutrophils Percent Auto 56.4 % (45.5-73.1); Platelet Count Result 305 k/mm3 (150-375); Red Blood Count 2.96 M/mm3 (4.2-5.4); Red Cell Distribution Width 13.5 % (11.5-14.5); White Blood Count 8.7 K/mm3 (4.5-10.0)
[2022-02-16 06:24] LABS: Alanine Aminotransferase 21 U/L (6-35); Alkaline Phosphatase 87 U/L (38-126); Anion Gap 3 mmol/L (8-16); Aspartate Amino Transferase 27 U/L (14-36); Bilirubin,Total 0.6 mg/dL (0.2-1.3); Blood Urea Nitrogen 15 mg/dL (7-17); Calcium 9.6 mg/dL (8.4-10.2); Carbon Dioxide 26 mmol/L (22-30); Chloride 105 mmol/L (98-107); Estimated CRCL calculation 88 ml/min; Estimated Glomerular Filt Rate > 60; Glucose 109 mg/dL (65-110); Magnesium 2.1 mg/dL (1.6-2.3); Potassium 3.6 mmol/L (3.4-5.0); Sodium 134 mmol/L (137-145)
[2022-02-16] MEDS: SENNA/DOCUSATE SODIUM TABLET 2 TAB PO ×2 (08:23→17:31)
[2022-02-16] MEDS: polyethylene glycoL 3350 17 GM POWD.PACK PO (08:23)
[2022-02-16] MEDS: APIXABAN 2.5 MG TABLET PO ×2 (08:23→20:40)
--- NOTE | 2022-02-16 12:36 | PM.PNORT ---
Progress Note: A&P Additional Plan Patient is postoperative day number 3 after internal fixation of highly comminuted 3 part right intertrochanteric hip fracture. She has no pain at rest but she does have pain after she is mobilized. She is not keeping more than half of her weight off the leg and I talked to her about the importance of moving more slowly taking smaller steps with a walker keeping the walker under herself so she can support her weight on her hands and we will get a smaller walker for her as hers is a bit too tall. I reminded her that she should not be lifting her leg into bed on her own it needs to be lifted for her as a straight leg raise actively puts essentially full weight-bearing stress across the fracture. She wants to go home but is starting to realize that she needs help getting up from the chair each and every time and it would be safer for her to be in a rehab facility and that is what I would recommend for her for the next 3 weeks or so. Hemoglobin is 9. The slow decrease that she has had over the last 3 days is typical with this pattern of fracture and I would expect it will start to go up either tomorrow or the next day. Her anemia represents acute blood loss anemia from her fracture. Subjective Subjective Date/Time Seen: 02/16/22 12:36 Objective Data Vital Signs Vital Signs: Vital Signs - 24 hr 02/15/22 14:24 02/15/22 19:30 02/15/22 20:00 Temperature 36.9 C 37.2 C Pulse Rate 87 70 70 Respiratory Rate 16 17 17 Blood Pressure 148/61 H 120/57 L Pulse Oximetry 97 99 99 Oxygen Delivery Room Air 02/16/22 03:25 02/16/22 08:30 Temperature 36.3 C L Pulse Rate 74 Respiratory Rate 17 Blood Pressure 124/40 L Pulse Oximetry 98 Oxygen Delivery Room Air Intake/Output Intake/Output: Intake & Output 02/13/22 02/14/22 02/15/22 02/16/22 23:59 23:59 23:59 23:59 Intake Total 2290 1560 1290 240 Output Total 450 250 200 Balance 1840 1310 1090 240 Meds/Results Medications: Active Medications Generic Name Dose Route Start Last Admin Trade Name Freq PRN Reason Stop Dose Admin Acetaminophen 1,000 mg 02/13/22 18:00 02/16/22 12:09 Acetaminophen 500 Mg Tablet PO 1,000 mg Q6H SHERLEY Administration Apixaban 2.5 mg 02/14/22 09:00 02/16/22 08:23 Apixaban 2.5 Mg Tablet PO 2.5 mg Q12HR SHERLEY Administration Calcium Citrate 1 tablet 02/14/22 09:25 02/16/22 08:23 Calcium Citrate 315 Mg/Vitamin D 250 Units Tab PO 1 tablet BID SHERLEY Administration Ergocalciferol 50,000 unit 02/14/22 09:30 02/14/22 09:56 Ergocalciferol 50,000 Unit Capsule PO 03/11/22 09:31 50,000 unit MOFR SHERLEY Administration Morphine Sulfate 1 mg 02/13/22 11:40 Morphine Sulfate (*Crx) 2 Mg/Ml Inj IV PUSH Q1H PRN Pain Rated 7-10 Naloxone HCl 0.1 mg 02/13/22 11:40 Naloxone Hcl 0.4 Mg/Ml Vial IV PUSH Q2M PRN Opiate Reversal Oxycodone HCl 2.5 mg 02/13/22 13:00 02/16/22 08:23 Oxycodone Hcl (*Crx) 2.5 Mg Tab Ir PO 2.5 mg Q4HR SHERLEY Administration Oxycodone HCl 2.5 mg 02/13/22 11:40 Oxycodone Hcl (*Crx) 2.5 Mg Tab Ir PO Q4H PRN Pain Rated 7-10 Perflutren Lipid Microsphere 0 ml 02/13/22 08:09 Perflutren Lipid Microspheres 1.5 Ml Vial Diluted To 10 Ml Total Volume IV PUSH ONCE PRN adequate visualization Protocol Polyethylene Glycol 17 gm 02/14/22 09:00 02/16/22 08:23 Polyethylene Glycol 3350 17 Gm Powd.Pack PO 17 gm QAM SHERLEY Administration Senna/Docusate Sodium 2 tab 02/13/22 17:00 02/16/22 08:23 Senna/Docusate Sodium Tablet PO 2 tab BID SHERLEY Administration Radiology Results: ITS Impressions Chest X-Ray 02/12/22 19:03 IMPRESSION: No acute cardiopulmonary process. Abdomen/Pelvis CT 02/12/22 19:06 IMPRESSION: Comminuted intertrochanteric fracture of the right proximal femur. No other acute finding in the abdomen or pelvis. Hip/Pelvis X-Ray 02/12/22 19:56 IMPRESSI
[2022-02-16 14:18] VITALS: BP 150/68; PULSE 97; RESP 16; TEMP 36.7; O2SAT 95
--- NOTE | 2022-02-16 15:14 | PM.IMPN ---
Progress Note: A&P Assessment and Plan (1) Femur fracture: Qualifiers: Encounter type: initial encounter Femur location: unspecified portion of femur Fracture morphology: unspecified fracture morphology Fracture type: closed Laterality: right Qualified Code(s): S72.91XA - Unspecified fracture of right femur, initial encounter for closed fracture Code(s): S72.90XA - Unspecified fracture of unspecified femur, initial encounter for closed fracture Status: Acute Assessment and Plan: Secondary to fall. X-ray on presentation demonstrated comminuted intertrochanteric fracture of the right proximal femur - Seen in consultation by Orthopedic surgery - POD#3 s/p ORIF R hip w/ Dr. Disla. Tolerated procedure well and pain is well controlled - Continue low-dose Eliquis for anticoagulation per Orthopedic surgery - Continue PT/OT - Planning for home health on discharge. Hopeful discharge tomorrow if continued improvement (2) Fall: Qualifiers: Encounter type: initial encounter Qualified Code(s): W19.XXXA - Unspecified fall, initial encounter Code(s): W19.XXXA - Unspecified fall, initial encounter Status: Acute Assessment and Plan: Patient reports 2 falls in the past 2 weeks - Both falls seem to be mechanical in nature without any preceding symptoms, with the first being tripping on a crack in the concrete by the pool and the second being a trip over a portable fan cord. - EKG shows poor R wave progression and LVH, some q waves in the high lateral leads. - ECHO was performed with normal EF, no valvular dysfunction. - Carotid dopplers show <50% stenosis in both the Right and Left ICA's. - Implement fall precautions (3) Anemia: Code(s): D64.9 - Anemia, unspecified Status: Acute Assessment and Plan: On arrival was likely hemoconcentrated w/ Hgb of 15.4 -decline in hemoglobin following IV fluids, likely dilutional -continue decline in hemoglobin following surgical intervention, suspect acute blood loss anemia secondary to surgery -hemoglobin hematocrit remaining stable -continue to monitor Subjective Date/time seen: 02/16/22 15:14 Interval history: Date of service: 02/16/2022 Elizabeth Canela is a 71-year-old female with no significant prior medical history who is seen in follow-up for right hip fracture s/p ORIF on 02/13/2022. She is doing well today. Her pain is better controlled at this time. Currently rates her right hip pain as 5-6/10. She did get up and participate with therapy today. She was able to walk around using a walker but was not able to do stairs due to her pain. She endorses feeling sore. She denies abdominal pain, nausea, vomiting, fever, chills, shortness of breath, cough, chest pain, dizziness, or lightheadedness. Her appetite has been good. Reports she has not had a bowel movement since surgery. Denies urinary symptoms. Review of Systems Review of Systems: All systems reviewed & are unremarkable except as noted in HPI and below Exam Narrative: General: Thin, well-appearing 71-year-old female, sitting up in bed, comfortable, NARD Neuro: awake, alert and oriented x4, speech clear, no focal neuro deficits noted HEENMT: normocephalic, atraumatic, EOMI, sclerae anicteric Respiratory: clear to auscultation bilaterally, nonlabored breathing Cardio: regular rate, regular rhythm with S1-S2 Abdomen: nondistended, normoactive bowel sounds, soft, nontender to palpation Extremities: Right hip incision covered with dressing that is clean and dry, nontender to palpation, bilateral lower extremities without edema, erythema, or tenderness to palpation, DP pulses 2+ bilaterally Skin: no rashes or lesions, warm and dry Psych: appropriate mood and affect, judgment and insight intact Objective Data Vital Signs Vital Signs: Vital Signs - 24 hr 02/15/22 19:30 02/15/22 20:00 02/16/22 03:25 Temperature 99 F 97.4 F L Pulse
[2022-02-16] MEDS: BISACODYL 10 MG SUPPOSITORY RECTAL (15:27)
[2022-02-16 20:00] VITALS: PULSE 80; RESP 16; O2SAT 96
[2022-02-16 20:12] VITALS: BP 114/66; PULSE 80; RESP 16; TEMP 36.9; O2SAT 96
[2022-02-17] MEDS: oxyCODONE HCL (*CRX) 2.5 MG TAB IR PO ×4 (05:25→16:23)
[2022-02-17] MEDS: ACETAMINOPHEN 500 MG TABLET 1000 MG PO ×2 (05:25→11:56)
[2022-02-17 05:54] VITALS: BP 144/58; PULSE 79; RESP 16; TEMP 37.2; O2SAT 95
[2022-02-17 06:03] LABS: Hematocrit 29.9 % (37.0-47.0)
[2022-02-17] MEDS: polyethylene glycoL 3350 17 GM POWD.PACK PO (08:52)
[2022-02-17] MEDS: APIXABAN 2.5 MG TABLET PO (08:52)
[2022-02-17] MEDS: SENNA/DOCUSATE SODIUM TABLET 2 TAB PO ×2 (08:52→16:23)
--- NOTE | 2022-02-17 13:57 | PM.DS ---
DS: Admitting Diagnosis Discharge Date 02/17/2022 Admitting Diagnosis Hip fracture DS: Discharge Diagnosis Discharge Diagnosis (1) Femur fracture: Qualifiers: Encounter type: initial encounter Femur location: unspecified portion of femur Fracture morphology: unspecified fracture morphology Fracture type: closed Laterality: right Qualified Code(s): S72.91XA - Unspecified fracture of right femur, initial encounter for closed fracture Code(s): S72.90XA - Unspecified fracture of unspecified femur, initial encounter for closed fracture Status: Acute Assessment and Plan: Secondary to fall. X-ray on presentation demonstrated comminuted intertrochanteric fracture of the right proximal femur - Seen in consultation by Orthopedic surgery - Status post ORIF R hip by Dr. Disla on 02/13/22. Tolerated procedure well and pain was well controlled - Continue low-dose Eliquis for anticoagulation per Orthopedic surgery for 6 weeks. Anticoagulation precautions discussed. - Begin calcium-vitamin D supplement - Participated in PT/OT and will continue with home health (2) Fall: Qualifiers: Encounter type: initial encounter Qualified Code(s): W19.XXXA - Unspecified fall, initial encounter Code(s): W19.XXXA - Unspecified fall, initial encounter Status: Acute Assessment and Plan: Patient reports 2 falls in the past 2 weeks - Both falls seem to be mechanical in nature without any preceding symptoms, with the first being tripping on a crack in the concrete by the pool and the second being a trip over a portable fan cord. - EKG shows poor R wave progression and LVH, some q waves in the high lateral leads. - ECHO was performed with normal EF, no valvular dysfunction. - Carotid dopplers show <50% stenosis in both the Right and Left ICA's. - Fall precautions (3) Anemia: Code(s): D64.9 - Anemia, unspecified Status: Acute Assessment and Plan: On arrival was likely hemoconcentrated w/ Hgb of 15.4 -decline in hemoglobin following IV fluids, likely dilutional -continued decline in hemoglobin following surgical intervention, suspect acute blood loss anemia secondary to fracture/surgery -hemoglobin improved to 10.0 on day of discharge. Anticipate continued improvement with time. DS: Summary Hospital Course Hospital Course: Date of service: 02/12/2022 Date of discharge: 02/17/2022 Elizabeth Canela is a 71-year-old female with no significant prior medical history who presented to the emergency department on 02/12/2022 with complaints of right hip pain after a mechanical fall in her garage. States she tripped over the cord a buffet and and fell onto her right hip. No head injury. On presentation to the ED, her vital signs were stable, CXR showed no acute cardiopulmonary disease, CT of the abdomen/pelvis revealed comminuted intertrochanteric fracture of the right proximal femur which was also evident hip and pelvis x-ray. She was admitted to the hospitalist service for further evaluation and management was seen in consultation by Orthopedic surgery. Please see above for further details. Underwent ORIF right intertrochanteric hip fracture and tolerated this procedure well. She participated in therapy and did well with mobility. She was comfortable with return home with Home Health. She lives with her daughter and son-in-law who are able to assist her as needed. Given patients overall improvement, she was determined to no longer require inpatient care. We discussed worrisome signs or symptoms for which to return and she was educated on her medications. She was discharged in hemodynamically stable condition on 02/17/2022. She will follow up with orthopedic surgery as an outpatient. Status at Discharge Functional status at discharge: uses cane/walker Overall status at discharge: patient is progressing back to baseline Time Spent with Patient Time attestation: Total time
[2022-02-17 14:00] VITALS: BP 149/75; PULSE 99; RESP 18; TEMP 36.5; O2SAT 97
== END 2022-02-17 16:43 | disposition home health service (06) | DRG 481 ==
LOC: ANHED 20:03 → ANHTRC 20:32 → ANH2MED 21:47
PROVIDERS: Nurse Practitioner Adult Health; Orthopaedic Surgery; Physician Assistant; Admitting Provider Internal Medicine; Emergency Provider Emergency Medicine; PCP Family Medicine; Visit Provider Family Medicine
PROC: 0QS604Z Reposition Right Upper Femur with Internal Fixation Device, Open Approach (ICD-10-PCS; CPT 27245; principal; 2022-02-13 08:30)
DX: S72.141A Displaced intertrochanteric fracture of right femur, initial encounter for closed fracture (principal); D62 Acute posthemorrhagic anemia; Z20.822 Contact with and (suspected) exposure to COVID-19; W01.0XXA Fall on same level from slipping, tripping and stumbling without subsequent striking against object, initial encounter; E86.0 Dehydration
CPT/HCPCS: 36415; 71045; 73501; 73502; 74177; 80048; 80053; 81001; 82306; 83735; 85014; 85018; 85025; 85610; 85730; 86850; 86900; 86901; 87086; 93005; 93306; 93880; 96361; 96365; 96367; 96375; 96376; 97110; 97116; 97161; 97165; 97530; 97535; 99285; A9270; C1713; C9803; G0378; J0131; J0690; J1100; J1170; J1885; J2001; J2250; J2270; J2405; J2704; J3010; J3370; J7030; J7120; Q9967; U0003; U0005

== ENCOUNTER 2022-11-12 04:49 | Inpatient (IN) | payer MEDICARE, SELFPAY ==
[2022-11-12] VITALS (26 sets, daily range): BP systolic 104–169; BP diastolic 53–87; PULSE 60–103; RESP 10–20; TEMP 36.3–37.4; O2SAT 93–100; BMI 21.7
--- NOTE | ~2022-11-12 | XR_ITS ---
EXAMINATION: XR hip LT 2V w AP pelvis DATE: 11/12/2022 05:40 INDICATION: Left hip pain. Fall. TECHNIQUE: An anteroposterior view pelvis and 2 views of left hip were obtained. COMPARISON: Left hip radiograph 02/13/2022, CT abdomen and pelvis 02/12/2022 FINDINGS: There is a comminuted subtrochanteric fracture of proximal left femur. The main distal frac ture fragment demonstrates 4 mm medial displacement, impaction, posterior angulation, and 20 degrees varus angulation. There is an intertrochanteric fracture of proximal right femur status post open red uction internal fixation with antegrade intramedullary tonya and two femoral head/neck screws. There is mild osteoarthritis of the hips. There is a calcified fibroid in the uterus. IMPRESSION: 1. Comminuted subtrochanteric fracture of proximal left femur. 2. Mild osteoarthritis of the hips. Reviewed, dictated and finalized at location A.
--- NOTE | ~2022-11-12 | XR_ITS ---
EXAMINATION: XR surgery orthopedic DATE: 11/12/2022 10:42 INDICATION: Intertrochanteric fracture of proximal left femur. TECHNIQUE: 6 intraoperative fluoroscopic views of left femur were obtained. I was not present. Fluoro scopy exposure time was 1 minute 40 seconds. COMPARISON: Left hip radiographs 11/12/2022 FINDINGS: There is an intertrochanteric fracture of proximal left femur in near-anatomic alignment st atus post open reduction internal fixation with antegrade intramedullary tonya, 2 femoral head/neck scr ews, and distal interlocking screw. IMPRESSION: 1. Intertrochanteric fracture of proximal left femur status post open reduction internal fixation. Reviewed, dictated and finalized at location A.
--- NOTE | ~2022-11-12 | XR_ITS ---
EXAMINATION: XR chest 1V DATE: 11/12/2022 05:40 INDICATION: Fall. TECHNIQUE: A single frontal view of the chest was obtained. COMPARISON: Chest single view 02/12/2022, CT abdomen and pelvis 02/12/2022 FINDINGS: There is no pneumonia, pleural effusion, or pneumothorax. Cardiomegaly is noted. IMPRESSION: 1. Cardiomegaly. Reviewed, dictated and finalized at location A. IMPRESSION: 1. Cardiomegaly.
--- NOTE | 2022-11-12 05:01 | ECG_ITS ---
Measurements Intervals [place] Rate: 84 P: -6 HI: 121 QRS: -45 QRSD: 114 T: 78 QT: 299 QTc: 354 Interpretive Statements SINUS RHYTHM PATTERN CONSISTENT WITH PULMONARY DISEASE LEFT ANTERIOR FASCICULAR BLOCK POSSIBLE SEPTAL MYOCARDIAL INFARCTION , OF INDETERMINATE AGE Electronically Signed On 11-12-2022 10:20:17 CDT by Nehemiah Mueller M.D.
--- NOTE | 2022-11-12 05:15 | ED.GENADULT ---
HPI - General Adult General Chief complaint: Extremity Injury, Lower Stated complaint: hip pain Time Seen by Provider: 11/12/22 04:51 History of Present Illness HPI narrative: 72-year-old female presented the emergency department for evaluation of left hip pain after having a ground-level fall. Patient states just prior to arrival she had a ground-level fall caused by imbalance. Patient states she injured her left hip but denies any other pain or injury. Patient denies striking her head denies any loss of consciousness. Patient had a fall last February and fractured her right hip. This was replaced by Dr. Disla. Patient has no other significant medical issues. Patient confirms she is not taking Eliquis. Related Data Allergies Allergy/AdvReac Type Severity Reaction Status Date / Time No Known Allergies Allergy Verified 02/12/22 17:57 Review of Systems Review of Systems: All systems reviewed & are unremarkable except as noted in HPI and below PMFSH Past Medical History Medical History No significant past medical history Surgical History Surgical History No significant past surgical history Family History Family History Other Unknown family medical history Social History Social History Smoking status: Never smoker Alcohol intake: never Substance use: never Substance use type: does not use Living arrangements: with family Gender identity (if verbalized by the patient): Female Spiritual care concerns: No Exam Narrative: APPEARANCE: Well appearing HEAD: normocephalic, atraumatic. EYES: PERRLA/EOMI, conjunctivae clear. NOSE: Normal no drainage THROAT: Pharynx clear, no exudate. NECK: Supple. No adenopathy, no masses. RESPIRATORY: Airway patent, respirations nonlabored. Clear to auscultation bilaterally, no rales, rhonchi, wheezing. CARDIOVASCULAR: Regular rate and rhythm without murmurs rubs or gallops. ABDOMINAL: Soft, nontender, nondistended, normal bowel sounds MUSCULOSKELETAL: Left hip is shortened externally rotated, decreased range of motion of the left leg secondary to pain. Strong pedal pulses NEURO: Alert. Cranial nerves II through XII intact. Grossly intact SKIN: Warm, dry. Normal Color Course Course Emergency Course: 72-year-old female with a ground-level fall resulting in a suspected subtrochanteric fracture of the left hip. Case was discussed with orthopedics and the plan is to have the patient admitted to the hospitalist and cleared for anticipated surgery this morning. Patient and family were updated on the results of the x-ray, plan for admission and anticipated surgical plan. All questions and concerns were addressed. Patient was treated with IV medications and was feeling improved. Case was discussed with the hospitalist and patient was accepted for admission. Vital Signs Vital signs: Vital Signs Temperature 97.6 F 11/12/22 04:53 Pulse Rate 87 11/12/22 04:53 Respiratory Rate 20 11/12/22 04:53 Blood Pressure 158/87 H 11/12/22 04:53 Pulse Oximetry 99 11/12/22 04:53 Oxygen Delivery Room Air 11/12/22 04:53 Temperature 97.6 F 11/12/22 04:53 Pulse Rate 83 11/12/22 06:48 Respiratory Rate 20 11/12/22 06:48 Blood Pressure 121/54 L 11/12/22 06:48 Pulse Oximetry 98 11/12/22 06:48 Oxygen Delivery Room Air 11/12/22 04:53 Medical Decision Making Vital Signs Vital Signs: Vital Signs Temperature 97.6 F 11/12/22 04:53 Pulse Rate 87 11/12/22 04:53 Respiratory Rate 20 11/12/22 04:53 Blood Pressure 158/87 H 11/12/22 04:53 Pulse Oximetry 99 11/12/22 04:53 Oxygen Delivery Room Air 11/12/22 04:53 Temperature 97.6 F 11/12/22 04:53 Pulse Rate 83 11/12/22 06:48 Respiratory Rate 20
[2022-11-12 05:18] LABS: Basophils Absolute Auto 0.1 K/mm3 (0.0-0.1); Basophils Percent Auto 0.5 % (0.2-1.2); Eosinophils Absolute Auto 0.2 K/mm3 (0-0.3); Eosinophils Percent Auto 0.8 % (0-4.4); Hematocrit 44.7 % (37.0-47.0); Hemoglobin 14.9 g/dL (12.0-15.0); Immature Granulocyte Absolute 0.26 K/mm3 (0.00-0.031); Immature Granulocyte Percent A 1.2 % (0-0.5); Lymphocytes Absolute Auto 3.48 K/mm3 (0.9-3.2); Lymphocytes Percent Auto 16.6 % (18.3-44.2); Mean Corpuscular HGB Conc 33.3 g/dl (32-36); Mean Corpuscular Hemoglobin 29.7 pg (26-34); Mean Corpuscular Volume 89.2 fl (80-100); Mean Platelet Volume 9.6 fl (7.4-10.4); Monocytes Absolute Auto 0.9 K/mm3 (0.1-0.6); Monocytes Percent Auto 4.5 % (2.6-8.5); Neutrophils Percent Auto 76.4 % (45.5-73.1); Platelet Count Result 523 k/mm3 (150-375); Red Blood Count 5.01 M/mm3 (4.2-5.4); Red Cell Distribution Width 13.2 % (11.5-14.5)
[2022-11-12] MEDS: fentaNYL CITRATE INJ (*CRX) 100 MCG/2 ML VIAL 50 MCG IV PUSH (05:18)
[2022-11-12 05:30] LABS: Prothrombin Time 13.1 Seconds (11.1-14.7)
[2022-11-12 05:31] LABS: Partial Thromboplastin Time 26.7 SECONDS (22.3-36.8)
[2022-11-12 05:50] LABS: Alanine Aminotransferase 21 U/L (6-35); Albumin Level 4.1 g/dL (3.5-5.1); Alkaline Phosphatase 105 U/L (38-126); Anion Gap 5 mmol/L (8-16); Aspartate Amino Transferase 27 U/L (14-36); Bilirubin,Total 0.6 mg/dL (0.2-1.3); Blood Urea Nitrogen 24 mg/dL (7-17); Calcium 9.9 mg/dL (8.4-10.2); Carbon Dioxide 24 mmol/L (22-30); Chloride 109 mmol/L (98-107); Estimated CRCL calculation 83 ml/min; Estimated Glomerular Filt Rate > 60; Glucose 116 mg/dL (65-110); Potassium 3.5 mmol/L (3.4-5.0); Sodium 138 mmol/L (137-145)
[2022-11-12] MEDS: HYDROmorphone HCL INJ (*CRX) 1 MG/ML SYR 0.5 MG IV PUSH (06:46)
[2022-11-12] MEDS: SODIUM CHLORIDE 0.9% IV 1,000 ML 100 ML IV CONT ×2 (06:53→13:13)
--- NOTE | 2022-11-12 07:07 | PC.NURSE ---
Nurse report given to Brenton MELENDREZ
[2022-11-12 07:33] LABS: Appearance Urine Clear (Clear); Bacteria Urine None Seen /hpf; Bilirubin Urine Negative (Negative); Blood Urine Negative (Negative); Color Urine Yellow (Yellow); Glucose Urine UA Negative (Negative); Ketones Urine Trace mg/dL (Negative); Leukocyte Esterase Ur Negative LEU/UL (Negative); Nitrate Urine Negative (Negative); Protein Urine Trace mg/dL (Negative); Specific Grav Ur 1.025 (1.001-1.035); Squamous Epithelial Cell Urine None seen /hpf (Few); WBC Urine 0-5 /hpf
[2022-11-12 07:41] LABS: Add Urine Microscopic? YES
--- NOTE | 2022-11-12 07:59 | WPDANESEPPF ---
Anes - Initial Pre Proc Eval Procedure: Operation Date: 11/12/22 09:00 Proposed Procedures p Left Intertrochanteric Nail - Luis Disla MD Date/Time: 11/12/22 07:59 Surgeon: Olga Ardon DO Pre Op Diagnosis: Left IT Hip Fx Patient Data Age: 72 Gender: F Height: 1.57 m Weight: 52.8 kg Last Vital Signs Temp 36.4 C 11/12/22 04:53 Pulse 80 11/12/22 07:47 Resp 17 11/12/22 07:47 BP 144/64 H 11/12/22 07:47 Pulse Ox 99 11/12/22 07:47 O2 Del Method Room Air 11/12/22 04:53 Allergies Allergy/AdvReac Type Severity Reaction Status Date / Time No Known Allergies Allergy Verified 02/12/22 17:57 Home Medications Medication Instructions Recorded Confirmed Type acetaminophen 500 mg tablet 1,000 mg PO Q6H #90 tabs 02/15/22 Rx apixaban 2.5 mg tablet (Eliquis) 2.5 mg PO Q12HR #65 tabs 02/15/22 Rx ergocalciferol (vitamin D2) 1,250 50,000 unit PO MOFR #14 caps 02/15/22 Rx mcg (50,000 unit) capsule (Vitamin D2) oxycodone 5 mg tablet 5 mg PO Q6H PRN pain #30 tabs 02/15/22 Rx polyethylene glycol 3350 17 gram 17 g PO QAM #30 ea 02/15/22 Rx oral powder packet (Miralax) sennosides 8.6 mg-docusate sodium 2 tab-cap PO BID #60 tabs 02/15/22 Rx 50 mg tablet (Senokot-S) calcium citrate 315 mg 1 tablet PO BID #90 tabs 02/17/22 Rx calcium-vitamin D3 6.25 mcg (250 unit) tablet (Citracal + Vitamin D Maximum) Laboratory Tests 11/12/22 11/12/22 11/12/22 05:11 05:11 05:11 WBC 21.0 K/mm3 H K/mm3 (4.5-10.0) RBC 5.01 M/mm3 M/mm3 (4.2-5.4) Hgb 14.9 g/dL D g/dL (12.0-15.0) Hct 44.7 % % (37.0-47.0) MCV 89.2 fl fl (80-100) MCH 29.7 pg pg (26-34) MCHC 33.3 g/dl g/dl (32-36) RDW 13.2 % % (11.5-14.5) Plt Count 523 k/mm3 H D k/mm3 (150-375) MPV 9.6 fl fl (7.4-10.4) Immature Gran % (Auto) 1.2 % H % (0-0.5) Neut % (Auto) 76.4 % H % (45.5-73.1) Lymph % (Auto) 16.6 % L % (18.3-44.2) [place] % (Auto) 4.5 % % (2.6-8.5) Eos % (Auto) 0.8 % % (0-4.4) Baso % (Auto) 0.5 % % (0.2-1.2) Lymph # (Auto) 3.48 K/mm3 H K/mm3 (0.9-3.2) [place] # (Auto) 0.9 K/mm3 H K/mm3 (0.1-0.6) Eos # (Auto) 0.2 K/mm3 K/mm3 (0-0.3) Baso # (Auto) 0.1 K/mm3 K/mm3 (0.0-0.1) Abs Immat Gran (auto) 0.26 K/mm3 H K/mm3 (0.00-0.031) Absolute Neuts (auto) 16.0 K/mm3 H K/mm3 (1.3-6.7) Absolute Nucleated RBC 0.0 K/mm3 K/mm3 (0.0-0.012) Nucleated RBC % 0.0 % % (0.0-0.2) PT 13.1 Seconds Seconds (11.1-14.7) INR 1.0 APTT 26.7 SECONDS SECONDS (22.3-36.8) Sodium 138 mmol/L mmol/L (137-145) Potassium 3.5 mmol/L mmol/L (3.4-5.0) Chloride 109 mmol/L H mmol/L (98-107) Carbon Dioxide 24 mmol/L mmol/L (22-30) Anion Gap 5 mmol/L L mmol/L (8-16) BUN 24 mg/dL H mg/dL (7-17) Creatinine 0.40 mg/dL L mg/dL (0.7-1.0) Estim Creat Clear Calc 83 ml/min ml/min Estimated GFR > 60 (59 - ) Glucose 116 mg/dL H mg/dL (65-110) Calcium 9.9 mg/dL mg/dL (8.4-10.2) Total Bilirubin 0.6 mg/dL mg/dL (0.2-1.3) AST 27 U/L U/L (14-36) ALT 21 U/L U/L (6-35) Alkaline Phosphatase 105 U/L U/L (38-126) Total Protein 7.0 g/dL g/dL (6.3-8.2) Albumin 4.1 g/dL g/dL (3.5-5.1) Urine Color Urine Appearance Urine pH Ur Specific [place] Urine Protein Urine Glucose (UA) Urine Ketones Ur Blood (Man) Urine Nitrate Urine Bilirubin Urine Urobilinogen Leukocyte Esterase Rfl Urine RBC Urine WBC Ur
[2022-11-12] MEDS: LACTATED RINGERS 1,000 ML 30 ML IV CONT ×2 (08:03→11:08)
--- NOTE | 2022-11-12 08:05 | PM.CNOR ---
Assessment and Plan Assessment and plan (1) Intertrochanteric fracture of left femur: Code(s): S72.142A - Displaced intertrochanteric fracture of left femur, initial encounter for closed fracture Status: Acute Assessment and Plan: Patient is a 72-year-old female who was well known to me. She came into the emergency room in the php consultant hours. She lives at home with her daughter and son-in-law and adult age grandchildren and tends to sleep in the living room and she got up in the middle the night and lost her balance and fell onto her left hip. She was brought to the emergency room and x-rays obtained which demonstrated a comminuted left intertrochanteric hip fracture 4 part. Significant osteoporosis is noted. Patient states she did not get her bone density test last year which we talked about. She takes no medications. I realize that the ER note lists a list of medications but does with the medications we gave her at discharge from the hospital 1 year ago and included Eliquis for DVT prophylaxis and she is not taking any medications currently. [place] [address]. I asked her if she has been having any urinary tract symptoms and she states that she has had increased frequency lately and urgency but her urinalysis is completely 0-5 white blood cells per high-powered field so the reflex urine culture will not be done. She denies any other areas of infection any skin breakdown anywhere or sores. She has not been coughing or had any sinus drainage. It is possible that her elevated white count is due to the stress of having her hip fracture. If it remains elevated and there is no evidence of infection she will need further evaluation Hematology potentially. Her platelet count was also very 23 is. Hemoglobin is 14.9 and since these are all elevated 1 consider dehydration as well. She had no medical complications and healed uneventfully with respect to her right hip fracture from 1 year ago. She does use a walker for balance because she is afraid of falling but occasionally she does not that happened last night. She denies any problems with her heart or lungs or any medical illnesses over this past year. She denies chest pain or shortness of breath. On exam the left leg is markedly shortened externally rotated. She is alert and oriented and communicates well and is a good historian this morning. She has a 2+ dorsalis pedis pulse and she can feel her left foot and wiggle her of her toes on the left. She denies any other injury. She has full range of motion of her neck and her upper extremities without discomfort. Impression: Patient has a comminuted 4 part left intertrochanteric hip fracture and I suspect she has significant osteoporosis. I have recommended that she go through the bone density test process as an outpatient so we can look into this. We will check a 25 hydroxy vitamin-D level again supplement this if it is low and I would recommend she take calcium plus vitamin-D for life at a minimum possibly additional medication to treat osteoporosis is present. I have explained that the procedure to repair her left hip fracture would be the same is we used to repair the right hip fracture. I have reviewed the risks of surgery with her in detail including infection blood clots malunion loss of fixation nonunion and medical complications such as heart attack stroke pulmonary embolism and risk of mortality. She has had no intervening medical illness to her knowledge over the past year and she tolerated the surgery 1 year ago. She has been NPO since last night and we will proceed this morning as discussed. History of Present Illness HPI Consult date: 11/12/22 Chief complaint: Left IT Hip Fx PMFSH Past Medical History Medical History (Updated 11/12/22 @ 08:06 by Luis Disla MD) Balance disorder uses walker since last hip surgery Surgical History Surgical History (Updated 11/12/22 @ 08:00
--- NOTE | 2022-11-12 08:15 | WPDHPUPDATE1 ---
History and Physical Update Update Date/Time: 11/12/22 08:15 History and Physical has been reviewed, including an updated exam of the patient. There are NO changes in the patient's condition. Risks, benefits, and alternatives have been discussed and questions answered. Patient agrees to proceed with procedure.
[2022-11-12] MEDS: TRANEXAMIC ACID 1,000MG/ISO100 1,000 MG/100 ML BAG 200 MG IVPB (08:29)
[2022-11-12] MEDS: ceFAZolin 2 GM/D5W 50 ML 2 GM/50 ML BAG IVPB (09:15)
[2022-11-12] MEDS: ceFAZolin SODIUM 1 GM VIAL IRRIGATION (10:35)
--- NOTE | 2022-11-12 10:49 | P.OP_ITS ---
Procedure Note - Detailed Date of Procedure 11/12/22 Pre-op Diagnosis Left IT Hip Fx Post-op Diagnosis Same Procedure Performed Open reduction internal fixation of left intertrochanteric hip fracture with Arthrex extended length trochanteric nail device Surgeon Luis Disla MD Combat Control Manager Katelyn Bland Anesthesia General Description of Procedure Patient was brought to the operating room and general anesthesia was administered. She received 2 g of Ancef weight based vancomycin 1 g of tranexamic acid preoperatively. The left hip was scrubbed with chlorhexidine cloth and she was transferred to the and fracture table. Soft roll and Coban applied the left foot placed in the traction boot the right hip flexed and abducted out of the way. Left hip prepped draped usual fashion. 1/2 inch longitudinal incision was made proximal to greater trochanter guide pin was inserted in the center of the entrance hole planned. The fracture was actually a 3 part fracture with the lesser trochanter still intact but the greater trochanter fractured off at the junction of greater trochanter and femoral neck and the guide pin was inserted by hand this area centered on the shaft on the lateral view and a starter Reamer used to make an opening and long guide tonya inserted the canal reamed to 13 mm and we measured for a 33 mm x 11 mm 125 degree nail. This was inserted under manual pressure to the appropriate depth. A guide pin was inserted low in the femoral head perfectly center on the lateral view. Anti rotation guide wire was then placed. This was reamed and an 85 mm telescoping lag screw was inserted. To about 6 mm of subchondral bone and the impingement sleeve advanced to lock the lag screw to the tonya. And 65 mm anti rotation screw was placed. Interlocking screw was placed in the mid shaft without difficulty traction was removed final fluoroscopic x-rays obtained showi ng proper alignment and position of the tonya and screws. The wounds were irrigated with antibiotic solution. The fascia was closed the proximal incision with 0 Vicryl the skin incisions closed with 2-0 subcutaneous Vicryl and glue. EBL was less than 100 cc. There were no complications and she was transferred postop recovery room stable condition. Condition Stable Disposition PACU
--- NOTE | 2022-11-12 10:52 | SUR.OPER ---
Phelps catheter in place on arrival to the OR. 175mL of clear yellow urine drained at 1052.
[2022-11-12] MEDS: fentaNYL CITRATE INJ (*CRX) 100 MCG/2 ML VIAL 25 MCG IV PUSH ×8 (11:38→12:27)
--- NOTE | 2022-11-12 12:51 | ADMGEN ---
This patient, Elizabeth Canela, was admitted to 2 Medical Room 241-01. Patient/family oriented to hospital policies and general routines including ID bracelet, bed and alarms, visiting hours, pain management, procedures, bathroom and other care routines, personal items, smoking policy, room service/diet, and visiting hours. Information on how to activate the Rapid Response Team has been discussed. Patient/Family are encouraged to report perceived risks to care and to ask questions if they do not understand what they are told or what they should do.
[2022-11-12] MEDS: ACETAMINOPHEN 325 MG TABLET 650 MG PO ×2 (13:11→17:42)
[2022-11-12] MEDS: oxyCODONE HCL (*CRX) 2.5 MG TAB IR PO ×3 (13:11→20:48)
--- NOTE | 2022-11-12 13:37 | PM.IMHP ---
H&P: HPI History of Present Illness Date/Time: 11/12/22 13:37 Chief Complaint: Fall, left hip fracture Narrative: This is a 72-year-old female with no significant past medical history the present to the ED on 11/11/2022 with chief complaint of fall and left hip pain. Patient stated that she was sitting on the couch and when she was getting up to stand she is not sure if she felt dizzy or what really happened but she fell her so starting to fall and was unable to catch herself. She denies hitting lost consciousness. She lives home with her daughter and son in law with their two son's who were able to help her. Patient had a fall in February of 2022 where she had fractured her right hip and was treated by Dr. Barroso. When she was discharged last she was discharged on Eliquis, pain medication and vitamin supplements. There is suspicion for osteoporosis although she did not follow and get DEXA scan that was recommended. Patient was found to have an elevated white count of 21 although she has no signs or symptoms of infection. Patient's urine and chest x-ray are both unremarkable. Hip and pelvis x-ray revealed comminuted subtrochanteric fracture proximal left femur and mild osteoarthritis of the hips. Orthopedics was consulted in the ED and patient had ORIF of left intertrochanteric hip fracture early this morning. patient seen postoperatively and she is doing well. Patient was up to the chair and states that her pain is well controlled although she still does have some discomfort. DVT prophylaxis and pain control per Orthopedics. Patient denies chest pain, shortness breast nausea,, dizziness, headache, body aches and chills. Review of Systems Review of Systems: All systems reviewed & are unremarkable except as noted in HPI and below PMFSH Past Medical History Medical History Balance disorder uses walker since last hip surgery Surgical History Surgical History History of hip surgery right IT Nail 03/04 Family History Family History Daughter Colon cancer Other Unknown family medical history Social History Social History (Reviewed 11/12/22 @ 14:49 by JOCELINE Rivera Smoking status: Never smoker Alcohol intake: never Substance use: never Substance use type: does not use Lack of Transportation: No Lack of Food: Never True Current Housing: I Have Housing Concerned About Future Housing: No Difficulty Paying Gas/Electric Bills: No Difficulty Paying for Meds: No Currently Unemployed: No Education: High School Diploma/GED Difficulty w/ Childcare or Family Care: No Living arrangements: with family Gender identity (if verbalized by the patient): Female Spiritual care concerns: No Meds Home Medications and Allergies Home Medications Medication Instructions Recorded Confirmed Type No Home Medications 11/12/22 11/12/22 History Allergies Allergy/AdvReac Type Severity Reaction Status Date / Time No Known Allergies Allergy Verified 02/12/22 17:57 Vital Signs Vital Signs - 24 hr 11/12/22 04:53 11/12/22 06:48 11/12/22 07:00 Temperature 97.6 F Pulse Rate 87 83 72 Respiratory Rate 20 20 14 Blood Pressure 158/87 H 121/54 L Pulse Oximetry 99 98 97 Oxygen Delivery Room Air Oxygen Flow Rate 11/12/22 07:01 11/12/22 07:15 11/12/22 07:16 Temperature Pulse Rate 70 76 78 Respiratory Rate 18 19 16 Blood Pressure 124/54 L 141/55 H Pulse Oximetry 95 98 97 Oxygen Delivery Oxygen Flow Rate 11/12/22 07:30 11/12/22 07:32 11/12/22 07:45 Temperature Pulse Rate 84 92 81 Respiratory Rate 16 20 19 Blood Pressure Pulse Oximetry 99 93 98 Oxygen Delivery Oxygen Flow Rate 11/12/22 07:47 11/12/22 08:07 11/12/22 11:08 Temperature 99.3 F 97.4 F L Pulse Rate
[2022-11-12] MEDS: ceFAZolin 1 GM/NS 50 ML 1 GM/50 ML BAG IVPB (17:42)
[2022-11-12] MEDS: SENNA/DOCUSATE SODIUM TABLET 2 TAB PO (17:43)
[2022-11-13] VITALS (12 sets, daily range): BP systolic 111–133; BP diastolic 50–95; PULSE 67–103; RESP 16–18; TEMP 36.2–36.4; O2SAT 96–97
[2022-11-13] MEDS: oxyCODONE HCL (*CRX) 2.5 MG TAB IR PO ×7 (01:16→20:57)
[2022-11-13] MEDS: ACETAMINOPHEN 325 MG TABLET 650 MG PO ×4 (01:16→17:32)
[2022-11-13] MEDS: ceFAZolin 1 GM/NS 50 ML 1 GM/50 ML BAG IVPB ×3 (01:23→17:51)
[2022-11-13 05:45] LABS: Basophils Absolute Auto 0.1 K/mm3 (0.0-0.1); Basophils Percent Auto 0.8 % (0.2-1.2); Eosinophils Percent Auto 0.4 % (0-4.4); Hematocrit 34.8 % (37.0-47.0); Hemoglobin 11.3 g/dL (12.0-15.0); Immature Granulocyte Absolute 0.03 K/mm3 (0.00-0.031); Immature Granulocyte Percent A 0.3 % (0-0.5); Lymphocytes Absolute Auto 2.28 K/mm3 (0.9-3.2); Lymphocytes Percent Auto 23.8 % (18.3-44.2); Mean Corpuscular HGB Conc 32.5 g/dl (32-36); Mean Corpuscular Hemoglobin 29.6 pg (26-34); Mean Corpuscular Volume 91.1 fl (80-100); Mean Platelet Volume 10.1 fl (7.4-10.4); Monocytes Absolute Auto 1.3 K/mm3 (0.1-0.6); Monocytes Percent Auto 13.1 % (2.6-8.5); Neutrophils Absolute Auto 5.9 K/mm3 (1.3-6.7); Neutrophils Percent Auto 61.6 % (45.5-73.1); Platelet Count Result 393 k/mm3 (150-375); Red Blood Count 3.82 M/mm3 (4.2-5.4); Red Cell Distribution Width 13.4 % (11.5-14.5); White Blood Count 9.6 K/mm3 (4.5-10.0)
[2022-11-13 06:01] LABS: Anion Gap 4 mmol/L (8-16); Blood Urea Nitrogen 13 mg/dL (7-17); Calcium 9.6 mg/dL (8.4-10.2); Carbon Dioxide 25 mmol/L (22-30); Chloride 106 mmol/L (98-107); Estimated CRCL calculation 83 ml/min; Estimated Glomerular Filt Rate > 60; Glucose 124 mg/dL (65-110); Potassium 3.5 mmol/L (3.4-5.0); Sodium 135 mmol/L (137-145)
[2022-11-13 07:18] LABS: Vitamin D 25 Hydroxy < 12.8 ng/mL
[2022-11-13] MEDS: SENNA/DOCUSATE SODIUM TABLET 2 TAB PO ×2 (08:24→17:32)
[2022-11-13] MEDS: APIXABAN 2.5 MG TABLET PO ×2 (08:24→20:57)
[2022-11-13] MEDS: polyethylene glycoL 3350 17 GM POWD.PACK PO (08:25)
--- NOTE | 2022-11-13 10:15 | PM.PNORT ---
Progress Note: A&P Assessment and Plan (1) Intertrochanteric fracture of left femur: Code(s): S72.142A - Displaced intertrochanteric fracture of left femur, initial encounter for closed fracture Status: Acute Assessment and Plan: Patient is postop day 1 after internal fixation of left intertrochanteric hip fracture. She is feeling very good today. She had a lot of pain when she 1st came up from surgery yesterday and they got her up to the chair. Since that time however her pain has been very well controlled while she is at rest in bed. She has pillows under the calves the heels are off the bed she is neurologically intact both lower extremities. She is alert and oriented and cheerful and talkative today. We discussed her osteoporosis and I suspect it will be diagnosed on bone density test and she should have this addressed to avoid further fractures. Her 25 hydroxy vitamin-D level was very low at less than 12.8 and I have ordered 8 [place] [address] units ergocalciferol. I have ordered Citracal plus D 1 tablet twice daily. She is very satisfied with the pain control regimen we are using and I discussed with her that she can ask for an additional dose of oxycodone if needed as often as every 4 hours. Continue with physical therapy. Subjective Subjective Date/Time Seen: 11/13/22 10:15 Objective Data Vital Signs Vital Signs: Vital Signs - 24 hr 11/12/22 11:08 11/12/22 11:15 11/12/22 11:30 Temperature 36.3 C L Pulse Rate 89 82 72 Respiratory Rate 10 L 16 20 Blood Pressure 128/66 158/77 H 169/83 H Pulse Oximetry 100 100 100 Oxygen Delivery Simple Face Mask Simple Face Mask Room Air Oxygen Flow Rate 10 10 11/12/22 11:45 11/12/22 12:00 11/12/22 12:15 Temperature Pulse Rate 69 60 61 Respiratory Rate 20 18 17 Blood Pressure 163/81 H 161/59 H 161/61 H Pulse Oximetry 100 100 98 Oxygen Delivery Room Air Room Air Room Air Oxygen Flow Rate 11/12/22 13:38 11/12/22 12:35 11/12/22 12:50 Temperature 37.1 C 37.1 C Pulse Rate 67 66 Respiratory Rate 14 14 Blood Pressure 141/63 H 148/58 H Pulse Oximetry 96 96 Oxygen Delivery Room Air Oxygen Flow Rate 11/12/22 13:20 11/12/22 14:20 11/12/22 16:00 Temperature 37.0 C 36.7 C Pulse Rate 72 84 95 Respiratory Rate 14 16 Blood Pressure 117/55 L 112/56 L Pulse Oximetry 98 99 Oxygen Delivery Oxygen Flow Rate 11/12/22 16:59 11/12/22 16:41 11/12/22 19:24 Temperature 36.9 C 36.6 C Pulse Rate 78 84 Respiratory Rate 14 17 Blood Pressure 115/61 134/53 L Pulse Oximetry 98 98 Oxygen Delivery Room Air Oxygen Flow Rate 11/12/22 23:13 11/12/22 20:00 11/13/22 00:00 Temperature 36.6 C Pulse Rate 103 H 67 103 H Respiratory Rate 17 Blood Pressure 104/64 Pulse Oximetry 97 Oxygen Delivery Oxygen Flow Rate 11/13/22 03:10 11/13/22 04:00 11/13/22 10:00 Temperature 36.4 C 36.4 C Pulse Rate 86 67 74 Respiratory Rate 17 16 Blood Pressure 118/50 L 129/95 H Pulse Oximetry 96 97 Oxygen Delivery Oxygen Flow Rate Intake/Output Intake/Output: Intake & Output 11/10/22 11/11/22 11/12/22 11/13/22 23:59 23:59 23:59 23:59 Intake Total 1360 50 Output Total 665 450 Balance 695 -400 Meds/Results Medications: Active Medications Generic Name Dose Route Start Last Admin Trade Name Freq PRN Reason Stop Dose Admin Acetaminophen 650 mg 11/12/22 12:00 11/13/22 05:35 Acetaminophen 325 Mg Tablet PO 650 mg Q6HR [facility] Administration Apixaban 2.5 mg 11/13/22 09:00 11/13/22 08:24 Apixaban 2.5 Mg Tablet PO 2.5 mg Q12HR [facility] Administration Calcium Citrate 1 tablet 11/13/22 17:00 Calcium Citrate 315 Mg/Vitamin D 250 Units Tab PO BID [facility] Ergocalciferol 50,000 units 11/13/22 11:00 Ergocalciferol 50,000 Units Capsule PO 01/01/23 09:01 WEEKLY [facility] Cefazolin Sodium 1 gm in 50 mls @ 100 mls/hr 11/12/22 17:00 11/13/22 08:25 Ancef 1 Gm/Ns 50 Ml
--- NOTE | 2022-11-13 11:42 | PM.IMPN ---
Progress Note: A&P Assessment and Plan (1) Intertrochanteric fracture of left femur: Code(s): S72.142A - Displaced intertrochanteric fracture of left femur, initial encounter for closed fracture Status: Acute Assessment and Plan: Presented to the ED post fall with left hip pain. Hip and pelvis x-ray revealed left intertrochanteric hip fracture. Orthopedic is consulted appreciate recommendations. ORIF of left intertrochanteric fracture postop day 0 PT/ OT, analgesics, DVT prophylaxis per Orthopedics Per Dr. Barroso patient does have suspected osteoporosis and it is recommended that patient follow-up with a DEXA scan after she is discharged. Initiate fall precautions 4/2 Pt doing well today and pain is well controlled. PT/OT evaluation for discharge plans pending. (2) Hypertension: Code(s): I10 - Essential (primary) hypertension Status: Acute Assessment and Plan: Patient stated that she was diagnosed with hypertension in the past but she no longer takes medication. BP has been elevated since arrival to the hospital, but this could be due to pain. Will continue to monitor. Subjective Date/time seen: 11/13/22 11:42 Interval history: Patient doing really well after surgery and pain is well controlled. She is working with PT and OT. Patient was discharged home health last time she was here for hip fracture and she would like to do this again. Waiting for PT and OT assessment for patient on discharge. Review of Systems Review of Systems: All systems reviewed & are unremarkable except as noted in HPI and below Exam Narrative: GENERAL: Comfortable, no acute distress HENMT: moist mucous membranes EYES: EOM intact b/l NECK: no lymphadenopathy RESPIRATORY: clear to auscultation CARDIO: RRR GI: soft, nontender, bowel sounds present SKIN: no rashes EXTREMITIES: Left hip Tegaderm intact and dry. , minimal bruising and edema over left hip. Objective Data Vital Signs Vital Signs: Vital Signs - 24 hr 11/12/22 11:45 11/12/22 12:00 11/12/22 12:15 Temperature Pulse Rate 69 60 61 Respiratory Rate 20 18 17 Blood Pressure 163/81 H 161/59 H 161/61 H Pulse Oximetry 100 100 98 Oxygen Delivery Room Air Room Air Room Air 11/12/22 13:38 11/12/22 12:35 11/12/22 12:50 Temperature 98.8 F 98.7 F Pulse Rate 67 66 Respiratory Rate 14 14 Blood Pressure 141/63 H 148/58 H Pulse Oximetry 96 96 Oxygen Delivery Room Air 11/12/22 13:20 11/12/22 14:20 11/12/22 16:00 Temperature 98.6 F 98.1 F Pulse Rate 72 84 95 Respiratory Rate 14 16 Blood Pressure 117/55 L 112/56 L Pulse Oximetry 98 99 Oxygen Delivery 11/12/22 16:59 11/12/22 16:41 11/12/22 19:24 Temperature 98.4 F 97.8 F Pulse Rate 78 84 Respiratory Rate 14 17 Blood Pressure 115/61 134/53 L Pulse Oximetry 98 98 Oxygen Delivery Room Air 11/12/22 23:13 11/12/22 20:00 11/13/22 00:00 Temperature 97.9 F Pulse Rate 103 H 67 103 H Respiratory Rate 17 Blood Pressure 104/64 Pulse Oximetry 97 Oxygen Delivery 11/13/22 03:10 11/13/22 04:00 11/13/22 10:00 Temperature 97.6 F 97.6 F Pulse Rate 86 67 74 Respiratory Rate 17 16 Blood Pressure 118/50 L 129/95 H Pulse Oximetry 96 97 Oxygen Delivery 11/13/22 10:19 11/13/22 08:00 Temperature Pulse Rate Respiratory Rate Blood Pressure Pulse Oximetry 97 Oxygen Delivery Room Air Room Air Intake/Output Intake/Output: Intake & Output 11/10/22 11/11/22 11/12/22 11/13/22 23:59 23:59 23:59 23:59 Intake Total 1360 50 Output Total 665 450 Balance 695 -400 Meds/Results Medications: Active Medications Generic Name Dose Route Start Last Admin Trade Name Bijuq PRN Reason Stop Dose Admin Acetaminophen 650 mg 11/12/22 12:00 11/13/22 05:35 Acetaminophen 325 Mg Tablet PO 650 mg Q6HR SHERLEY Administration Apixaban 2.5 mg 11/13/22 09:00 11/13/22 08:24 Apixaban 2.5 Mg Ta
[2022-11-13] MEDS: ERGOCALCIFEROL 50,000 UNITS CAPSULE 50000 UNITS PO (11:49)
--- NOTE | 2022-11-13 11:58 | P.PNAN_ITS ---
Anes - Prog Note Post-Op Date/Time: 11/13/22 11:58 Cardiovascular status: normal Respiratory status: normal Airway patency: baseline Mental status: baseline Post-Op hydration status: normal Vital Signs: Last Vital Signs Temp 36.4 C 11/13/22 10:00 Pulse 74 11/13/22 10:00 Resp 16 11/13/22 10:00 BP 129/95 H 11/13/22 10:00 Pulse Ox 97 11/13/22 10:19 O2 Del Method Room Air 11/13/22 10:19 O2 Flow Rate 10 11/12/22 11:15 Pain Score (VAS): 10/21 I/O: Intake & Output 11/12/22 11/13/22 11/13/22 23:59 07:59 15:59 Intake Total 710 50 0 Output Total 325 450 Balance 385 -400 0 Laboratory Tests 11/13/22 05:11 11/13/22 05:11 11/13/22 11/13/22 11/13/22 05:11 05:11 05:11 WBC 9.6 RBC 3.82 L Hgb 11.3 L D Hct 34.8 L MCV 91.1 MCH 29.6 MCHC 32.5 RDW 13.4 Plt Count 393 H MPV 10.1 Immature Gran % (Auto) 0.3 Neut % (Auto) 61.6 Lymph % (Auto) 23.8 [place] % (Auto) 13.1 H Eos % (Auto) 0.4 Baso % (Auto) 0.8 Lymph # (Auto) 2.28 [place] # (Auto) 1.3 H Eos # (Auto) 0.0 Baso # (Auto) 0.1 Abs Immat Gran (auto) 0.03 Absolute Neuts (auto) 5.9 Absolute Nucleated RBC 0.0 Nucleated RBC % 0.0 Sodium 135 L Potassium 3.5 Chloride 106 Carbon Dioxide 25 Anion Gap 4 L BUN 13 D Creatinine 0.40 L Estim Creat Clear Calc 83 Estimated GFR > 60 Glucose 124 H Calcium 9.6 Vitamin D 25-Hydroxy < 12.8 Post-procedural complaints: none Patient Feedback: Patient satisfied with anesthetic care.
[2022-11-14] VITALS (9 sets, daily range): BP systolic 130–138; BP diastolic 56–62; PULSE 75–108; RESP 18; TEMP 36.9–37.1; O2SAT 96–99
[2022-11-14] MEDS: oxyCODONE HCL (*CRX) 2.5 MG TAB IR PO ×6 (00:22→20:42)
[2022-11-14] MEDS: ceFAZolin 1 GM/NS 50 ML 1 GM/50 ML BAG IVPB ×3 (00:22→17:41)
[2022-11-14] MEDS: ACETAMINOPHEN 325 MG TABLET 650 MG PO ×4 (00:22→17:36)
[2022-11-14 06:06] LABS: Basophils Absolute Auto 0.1 K/mm3 (0.0-0.1); Basophils Percent Auto 0.8 % (0.2-1.2); Eosinophils Absolute Auto 0.3 K/mm3 (0-0.3); Eosinophils Percent Auto 2.7 % (0-4.4); Hematocrit 33.2 % (37.0-47.0); Hemoglobin 10.9 g/dL (12.0-15.0); Immature Granulocyte Absolute 0.03 K/mm3 (0.00-0.031); Immature Granulocyte Percent A 0.3 % (0-0.5); Lymphocytes Absolute Auto 2.14 K/mm3 (0.9-3.2); Lymphocytes Percent Auto 23.4 % (18.3-44.2); Mean Corpuscular HGB Conc 32.8 g/dl (32-36); Mean Corpuscular Hemoglobin 30.4 pg (26-34); Mean Corpuscular Volume 92.5 fl (80-100); Monocytes Absolute Auto 0.9 K/mm3 (0.1-0.6); Monocytes Percent Auto 9.6 % (2.6-8.5); Neutrophils Absolute Auto 5.8 K/mm3 (1.3-6.7); Neutrophils Percent Auto 63.2 % (45.5-73.1); Platelet Count Result 332 k/mm3 (150-375); Red Blood Count 3.59 M/mm3 (4.2-5.4); Red Cell Distribution Width 13.6 % (11.5-14.5); White Blood Count 9.2 K/mm3 (4.5-10.0)
[2022-11-14 06:16] LABS: Alanine Aminotransferase 27 U/L (6-35); Alkaline Phosphatase 82 U/L (38-126); Anion Gap 3 mmol/L (8-16); Aspartate Amino Transferase 30 U/L (14-36); Bilirubin,Total 0.7 mg/dL (0.2-1.3); Blood Urea Nitrogen 14 mg/dL (7-17); Calcium 9.6 mg/dL (8.4-10.2); Carbon Dioxide 29 mmol/L (22-30); Chloride 103 mmol/L (98-107); Estimated CRCL calculation 106 ml/min; Estimated Glomerular Filt Rate > 60; Glucose 98 mg/dL (65-110); Potassium 3.2 mmol/L (3.4-5.0); Sodium 135 mmol/L (137-145)
[2022-11-14] MEDS: APIXABAN 2.5 MG TABLET PO ×2 (08:31→20:42)
[2022-11-14] MEDS: SENNA/DOCUSATE SODIUM TABLET 2 TAB PO ×2 (08:31→17:36)
[2022-11-14] MEDS: POTASSIUM CHLORIDE 20 MEQ PACKET (FOR LIQUID) 40 MEQ PO (08:32)
[2022-11-14] MEDS: polyethylene glycoL 3350 17 GM POWD.PACK PO (08:32)
[2022-11-14] MEDS: ONDANSETRON HCL ODT 4 MG TABLET PO (11:02)
--- NOTE | 2022-11-14 12:18 | PM.IMPN ---
Progress Note: A&P Assessment and Plan (1) Intertrochanteric fracture of left femur: Code(s): S72.142A - Displaced intertrochanteric fracture of left femur, initial encounter for closed fracture Status: Acute Assessment and Plan: Presented to the ED post fall with left hip pain. Hip and pelvis x-ray revealed left intertrochanteric hip fracture. Orthopedic is consulted appreciate recommendations. ORIF of left intertrochanteric fracture postop day 2 PT/ OT, analgesics, DVT prophylaxis per Orthopedics Per Dr. Barroso patient does have suspected osteoporosis and it is recommended that patient follow-up with a DEXA scan after she is discharged. Initiate fall precautions Pt doing well today and pain is well controlled. (2) Hypertension: Code(s): I10 - Essential (primary) hypertension Status: Acute Assessment and Plan: Patient stated that she was diagnosed with hypertension in the past but she no longer takes medication. BP has been elevated since arrival to the hospital, but this could be due to pain. Will continue to monitor. Subjective Date/time seen: 11/14/22 12:18 Interval history: Patient is doing well and is pain controlled. Review of Systems Review of Systems: All systems reviewed & are unremarkable except as noted in HPI and below Exam Narrative: GENERAL: Comfortable, no acute distress HENMT: moist mucous membranes EYES: EOM intact b/l NECK: no lymphadenopathy RESPIRATORY: clear to auscultation CARDIO: RRR GI: soft, nontender, bowel sounds present SKIN: no rashes EXTREMITIES: Left hip Tegaderm intact and dry. , minimal bruising and edema over left hip. Objective Data Vital Signs Vital Signs: Vital Signs - 24 hr 11/13/22 13:50 11/13/22 14:00 11/13/22 16:00 Temperature 97.2 F L 97.2 F L Pulse Rate 85 85 101 H Respiratory Rate 16 16 Blood Pressure 111/58 L 111/58 L Pulse Oximetry 97 97 11/13/22 21:45 11/13/22 20:00 11/14/22 00:00 Temperature 97.5 F L Pulse Rate 89 85 78 Respiratory Rate 18 Blood Pressure 133/65 Pulse Oximetry 96 11/14/22 04:00 11/14/22 06:00 Temperature 98.4 F Pulse Rate 81 87 Respiratory Rate 18 Blood Pressure 138/56 L Pulse Oximetry 96 Intake/Output Intake/Output: Intake & Output 11/11/22 11/12/22 11/13/22 11/14/22 23:59 23:59 23:59 23:59 Intake Total 1360 475 290 Output Total 665 450 Balance 695 25 290 Meds/Results Medications: Active Medications Generic Name Dose Route Start Last Admin Trade Name Freq PRN Reason Stop Dose Admin Acetaminophen 650 mg 11/12/22 12:00 11/14/22 05:42 Acetaminophen 325 Mg Tablet PO 650 mg Q6HR SHERLEY Administration Apixaban 2.5 mg 11/13/22 09:00 11/14/22 08:31 Apixaban 2.5 Mg Tablet PO 2.5 mg Q12HR SHERLEY Administration Calcium Citrate 1 tablet 11/13/22 17:00 11/14/22 08:31 Calcium Citrate 315 Mg/Vitamin D 250 Units Tab PO 1 tablet BID SHERLEY Administration Ergocalciferol 50,000 units 11/13/22 11:00 11/13/22 11:49 Ergocalciferol 50,000 Units Capsule PO 01/01/23 09:01 50,000 units WEEKLY SHERLEY Administration Cefazolin Sodium 1 gm in 50 mls @ 100 mls/hr 11/12/22 17:00 11/14/22 08:31 Ancef 1 Gm/Ns 50 Ml IVPB 100 mls/hr Q8H SHERLEY Administration Morphine Sulfate 2 mg 11/12/22 10:55 Morphine Sulfate (*Crx) 2 Mg/Ml Inj IV PUSH Q1H PRN Pain Rated 7-10 Naloxone HCl 0.1 mg 11/12/22 10:55 Naloxone Hcl 0.4 Mg/Ml Vial IV PUSH Q2M PRN Opiate Reversal Ondansetron HCl 4 mg 11/14/22 10:46 11/14/22 11:02 Ondansetron Hcl Odt 4 Mg Tablet PO 4 mg Q4H PRN Administration Nausea And Vomiting Oxycodone HCl 2.5 mg 11/12/22 13:00 11/14/22 08:33 Oxycodone Hcl (*Crx) 2.5 Mg Tab Ir PO 2.5 mg Q4HR SHERLEY Administration Oxycodone HCl 2.5 mg 11/12/22 10:55 11/13/22 11:49 Oxycodone Hcl (*Crx) 2.5 Mg Tab Ir PO 2.5 mg Q4H PRN Administration
[2022-11-14] MEDS: CHOLECALCIFEROL 1,000 UNITS TABLET 1000 UNITS PO (12:46)
--- NOTE | 2022-11-14 13:12 | PM.PNORT ---
Subjective Subjective Date/Time Seen: 11/14/22 13:12 Postop day 2 patient is alert. She is afebrile vital signs are stable. Labs are noted. Pain is well controlled at this point. She has been little slow with physical therapy. She is having a difficult time with toe-touch weight-bearing. Her bones were very soft at the time surgery we do not want any increased this at that point. Talked to her about going home and she feels that she might be comfortable with going home tomorrow morning after 2 more therapy sessions. She feels at this point on safe about going home due to her difficulty with ambulation. She does have plenty of help at home with family and she is also going to be going home on home health as well. Objective Data Vital Signs Vital Signs: Vital Signs - 24 hr 11/13/22 13:50 11/13/22 14:00 11/13/22 16:00 Temperature 36.2 C L 36.2 C L Pulse Rate 85 85 101 H Respiratory Rate 16 16 Blood Pressure 111/58 L 111/58 L Pulse Oximetry 97 97 11/13/22 21:45 11/13/22 20:00 11/14/22 00:00 Temperature 36.4 C L Pulse Rate 89 85 78 Respiratory Rate 18 Blood Pressure 133/65 Pulse Oximetry 96 11/14/22 04:00 11/14/22 06:00 Temperature 36.9 C Pulse Rate 81 87 Respiratory Rate 18 Blood Pressure 138/56 L Pulse Oximetry 96 Intake/Output Intake/Output: Intake & Output 11/11/22 11/12/22 11/13/22 11/14/22 23:59 23:59 23:59 23:59 Intake Total 1360 475 530 Output Total 665 450 Balance 695 25 530 Meds/Results Medications: Active Medications Generic Name Dose Route Start Last Admin Trade Name Freq PRN Reason Stop Dose Admin Acetaminophen 650 mg 11/12/22 12:00 11/14/22 12:46 Acetaminophen 325 Mg Tablet PO 650 mg Q6HR SHERLEY Administration Apixaban 2.5 mg 11/13/22 09:00 11/14/22 08:31 Apixaban 2.5 Mg Tablet PO 2.5 mg Q12HR SHERLEY Administration Calcium Citrate 1 tablet 11/13/22 17:00 11/14/22 08:31 Calcium Citrate 315 Mg/Vitamin D 250 Units Tab PO 1 tablet BID SHERLEY Administration Ergocalciferol 50,000 units 11/13/22 11:00 11/13/22 11:49 Ergocalciferol 50,000 Units Capsule PO 01/01/23 09:01 50,000 units WEEKLY SHERLEY Administration Cefazolin Sodium 1 gm in 50 mls @ 100 mls/hr 11/12/22 17:00 11/14/22 08:31 Ancef 1 Gm/Ns 50 Ml IVPB 100 mls/hr Q8H SHERLEY Administration Morphine Sulfate 2 mg 11/12/22 10:55 Morphine Sulfate (*Crx) 2 Mg/Ml Inj IV PUSH Q1H PRN Pain Rated 7-10 Naloxone HCl 0.1 mg 11/12/22 10:55 Naloxone Hcl 0.4 Mg/Ml Vial IV PUSH Q2M PRN Opiate Reversal Ondansetron HCl 4 mg 11/14/22 10:46 11/14/22 11:02 Ondansetron Hcl Odt 4 Mg Tablet PO 4 mg Q4H PRN Administration Nausea And Vomiting Oxycodone HCl 2.5 mg 11/12/22 13:00 11/14/22 12:46 Oxycodone Hcl (*Crx) 2.5 Mg Tab Ir PO 2.5 mg Q4HR SHERLEY Administration Oxycodone HCl 2.5 mg 11/12/22 10:55 11/13/22 11:49 Oxycodone Hcl (*Crx) 2.5 Mg Tab Ir PO 2.5 mg Q4H PRN Administration Pain Rated 7-10 Polyethylene Glycol 17 gm 11/13/22 09:00 11/14/22 08:32 Polyethylene Glycol 3350 17 Gm Powd.Pack PO 17 gm QAM SHERLEY Administration Senna/Docusate Sodium 2 tab 11/12/22 17:00 11/14/22 08:31 Senna/Docusate Sodium Tablet PO 2 tab BID SHERLEY Administration Vitamin D 1,000 units 11/14/22 09:00 11/14/22 12:46 Cholecalciferol 1,000 Units Tablet PO 1,000 units DAILY SHERLEY Administration Radiology Results: ITS Impressions Hip/Pelvis X-Ray 11/12/22 07:37 IMPRESSION: 1. Comminuted subtrochanteric fracture of proximal left femur. 2. Mild osteoarthritis of the hips. ADDENDUM: 11/12/22 1248 Correction: The proximal left femur fracture is intertrochanteric. Chest X-Ray 11/12/22 07:40 IMPRESSION: 1. Cardiomegaly. Intraoperative X-Ray 11/12/22 12:43 IMPRESSION: 1. Intertrochanteric fracture of proximal left femur status post open reduction internal fixation. Labs Labs
[2022-11-15] VITALS: PULSE 78
[2022-11-15] MEDS: ceFAZolin 1 GM/NS 50 ML 1 GM/50 ML BAG IVPB ×2 (00:49→09:05)
[2022-11-15] MEDS: oxyCODONE HCL (*CRX) 2.5 MG TAB IR PO ×4 (00:49→12:27)
[2022-11-15] MEDS: ACETAMINOPHEN 325 MG TABLET 650 MG PO ×3 (00:49→12:27)
[2022-11-15 04:00] VITALS: PULSE 82
[2022-11-15 06:00] VITALS: BP 129/58; PULSE 90; RESP 18; TEMP 36.8; O2SAT 97
[2022-11-15 06:16] LABS: Hematocrit 32.3 % (37.0-47.0); Hemoglobin 10.5 g/dL (12.0-15.0); Mean Corpuscular HGB Conc 32.5 g/dl (32-36); Mean Corpuscular Hemoglobin 30.4 pg (26-34); Mean Corpuscular Volume 93.6 fl (80-100); Mean Platelet Volume 10.1 fl (7.4-10.4); Platelet Count Result 357 k/mm3 (150-375); Red Blood Count 3.45 M/mm3 (4.2-5.4); Red Cell Distribution Width 13.6 % (11.5-14.5); White Blood Count 8.3 K/mm3 (4.5-10.0)
[2022-11-15 06:31] LABS: Anion Gap -1 mmol/L (8-16); Blood Urea Nitrogen 16 mg/dL (7-17); Calcium 9.8 mg/dL (8.4-10.2); Carbon Dioxide 30 mmol/L (22-30); Chloride 104 mmol/L (98-107); Estimated CRCL calculation 106 ml/min; Estimated Glomerular Filt Rate > 60; Glucose 94 mg/dL (65-110); Potassium 4.3 mmol/L (3.4-5.0); Sodium 133 mmol/L (137-145)
--- NOTE | 2022-11-15 06:45 | PM.PNORT ---
Subjective Subjective Date/Time Seen: 11/15/22 06:45 Postop day 3 patient is alert. Afebrile vital signs are stable. Hemoglobin is stable. Dressings are dry. Therapy did not see her yesterday afternoon for some reason. Therapy is going to work with her today. Discharge instructions are all filled out as well as medications in regard to orthopedic standpoint. She may be discharged to home later today. Objective Data Vital Signs Vital Signs: Vital Signs - 24 hr 11/14/22 14:00 11/14/22 08:00 11/14/22 12:00 Temperature 37.1 C Pulse Rate 91 75 108 H Respiratory Rate 18 Blood Pressure 135/60 Pulse Oximetry 99 Oxygen Delivery 11/14/22 16:00 11/14/22 22:00 11/14/22 20:00 Temperature 37.1 C Pulse Rate 86 92 Respiratory Rate 18 Blood Pressure 130/62 Pulse Oximetry 96 Oxygen Delivery Room Air 11/14/22 20:00 11/15/22 00:00 11/15/22 04:00 Temperature Pulse Rate 83 78 82 Respiratory Rate Blood Pressure Pulse Oximetry Oxygen Delivery 11/15/22 06:00 Temperature 36.8 C Pulse Rate 90 Respiratory Rate 18 Blood Pressure 129/58 L Pulse Oximetry 97 Oxygen Delivery Intake/Output Intake/Output: Intake & Output 11/12/22 11/13/22 11/14/22 11/15/22 23:59 23:59 23:59 23:59 Intake Total 8493 340 1662 Output Total 665 450 800 Balance 695 25 620 Meds/Results Medications: Active Medications Generic Name Dose Route Start Last Admin Trade Name Freq PRN Reason Stop Dose Admin Acetaminophen 650 mg 11/12/22 12:00 11/15/22 06:26 Acetaminophen 325 Mg Tablet PO 650 mg Q6HR SHERLEY Administration Apixaban 2.5 mg 11/13/22 09:00 11/14/22 20:42 Apixaban 2.5 Mg Tablet PO 2.5 mg Q12HR SHERLEY Administration Calcium Citrate 1 tablet 11/13/22 17:00 11/14/22 17:36 Calcium Citrate 315 Mg/Vitamin D 250 Units Tab PO 1 tablet BID SHERLEY Administration Ergocalciferol 50,000 units 11/13/22 11:00 11/13/22 11:49 Ergocalciferol 50,000 Units Capsule PO 01/01/23 09:01 50,000 units WEEKLY SHERLEY Administration Cefazolin Sodium 1 gm in 50 mls @ 100 mls/hr 11/12/22 17:00 11/15/22 00:49 Ancef 1 Gm/Ns 50 Ml IVPB 100 mls/hr Q8H SHERLEY Administration Morphine Sulfate 2 mg 11/12/22 10:55 Morphine Sulfate (*Crx) 2 Mg/Ml Inj IV PUSH Q1H PRN Pain Rated 7-10 Naloxone HCl 0.1 mg 11/12/22 10:55 Naloxone Hcl 0.4 Mg/Ml Vial IV PUSH Q2M PRN Opiate Reversal Ondansetron HCl 4 mg 11/14/22 10:46 11/14/22 11:02 Ondansetron Hcl Odt 4 Mg Tablet PO 4 mg Q4H PRN Administration Nausea And Vomiting Oxycodone HCl 2.5 mg 11/12/22 13:00 11/15/22 06:26 Oxycodone Hcl (*Crx) 2.5 Mg Tab Ir PO 2.5 mg Q4HR SHERLEY Administration Oxycodone HCl 2.5 mg 11/12/22 10:55 11/13/22 11:49 Oxycodone Hcl (*Crx) 2.5 Mg Tab Ir PO 2.5 mg Q4H PRN Administration Pain Rated 7-10 Polyethylene Glycol 17 gm 11/13/22 09:00 11/14/22 08:32 Polyethylene Glycol 3350 17 Gm Powd.Pack PO 17 gm QAM SHERLEY Administration Senna/Docusate Sodium 2 tab 11/12/22 17:00 11/14/22 17:36 Senna/Docusate Sodium Tablet PO 2 tab BID SHERLEY Administration Vitamin D 1,000 units 11/14/22 09:00 11/14/22 12:46 Cholecalciferol 1,000 Units Tablet PO 1,000 units DAILY SHERLEY Administration Radiology Results: ITS Impressions Hip/Pelvis X-Ray 11/12/22 07:37 IMPRESSION: 1. Comminuted subtrochanteric fracture of proximal left femur. 2. Mild osteoarthritis of the hips. ADDENDUM: 11/12/22 8468 Correction: The proximal left femur fracture is intertrochanteric. Chest X-Ray 11/12/22 07:40 IMPRESSION: 1. Cardiomegaly. Intraoperative X-Ray 11/12/22 12:43 IMPRESSION: 1. Intertrochanteric fracture of proximal left femur status post open reduction internal fixation. Labs Labs: Laboratory Results - last 24 hr 11/15/22 11/15/22 05:48 05:48 WBC 8.3 RBC 3.45 L Hgb 10.5 L Hct 32.3 L MCV 93.6
[2022-11-15 08:00] VITALS: PULSE 73
[2022-11-15] MEDS: SENNA/DOCUSATE SODIUM TABLET 2 TAB PO (09:05)
[2022-11-15] MEDS: polyethylene glycoL 3350 17 GM POWD.PACK PO (09:05)
[2022-11-15] MEDS: CHOLECALCIFEROL 1,000 UNITS TABLET 1000 UNITS PO (09:06)
[2022-11-15] MEDS: APIXABAN 2.5 MG TABLET PO (09:06)
--- NOTE | 2022-11-15 09:30 | PM.DS ---
DS: Admitting Diagnosis Discharge Date 11/15/22 Admitting Diagnosis Left hip fracture. DS: Discharge Diagnosis Discharge Diagnosis (1) Intertrochanteric fracture of left femur: Code(s): S72.142A - Displaced intertrochanteric fracture of left femur, initial encounter for closed fracture Status: Acute Assessment and Plan: Presented to the ED post fall with left hip pain. Hip and pelvis x-ray revealed left intertrochanteric hip fracture. Orthopedic is consulted appreciate recommendations. ORIF of left intertrochanteric fracture postop day 2 PT/ OT, analgesics, DVT prophylaxis per Orthopedics Per Dr. Barroso patient does have suspected osteoporosis and it is recommended that patient follow-up with a DEXA scan after she is discharged. Initiate fall precautions Pt doing well today and pain is well controlled. (2) Hypertension: Code(s): I10 - Essential (primary) hypertension Status: Acute Assessment and Plan: Patient stated that she was diagnosed with hypertension in the past but she no longer takes medication. BP has been elevated since arrival to the hospital, but this could be due to pain. Will continue to monitor. DS: Summary Hospital Course Reason for hospitalization: Left hip fracture Hospital Course: This is a 72-year-old female with no significant past medical history the present to the ED on 11/11/2022 with chief complaint of fall and left hip pain. She denies hitting lost consciousness. Patient had a fall in February of 2022 where she had fractured her right hip and was treated by Dr. Barroso.? When she was discharged? last she was discharged on Eliquis, pain medication and vitamin supplements. There is suspicion for osteoporosis although she did not follow and get DEXA scan that was recommended.? Patient was found to have an elevated white count of 21 although she has no signs or symptoms of infection.? Patient's urine and chest x-ray are both unremarkable.? Hip and pelvis x-ray revealed comminuted subtrochanteric fracture proximal left femur and mild osteoarthritis of the hips.? Orthopedics was consulted in the ED and patient? had? ORIF of left intertrochanteric hip fracture on 11/13/2022.DVT prophylaxis and pain control per Orthopedics.?Vitamin D was low at >12. Supplement of 5000 units of ergocalciferol weekly for 8 weeks. Also recommend follow up with DEXA scan. Patient worked with PT/OT and plan for discharge home with home health. Time Spent with Patient Time attestation: Total time spent providing and/or coordinating discharge services: Exam Narrative: GENERAL: Comfortable, no acute distress HENMT: moist mucous membranes EYES: EOM intact b/l NECK: no lymphadenopathy RESPIRATORY: clear to auscultation CARDIO: RRR GI: soft, nontender, bowel sounds present SKIN: no rashes EXTREMITIES: Left hip Tegaderm intact and dry. , minimal bruising and edema over left hip. DS: Data Data Completed and Pending Labs on day of discharge: Labs from last 24 hours 11/15/22 11/15/22 05:48 05:48 WBC 8.3 RBC 3.45 L Hgb 10.5 L Hct 32.3 L MCV 93.6 MCH 30.4 MCHC 32.5 RDW 13.6 Plt Count 357 MPV 10.1 Sodium 133 L Potassium 4.3 Chloride 104 Carbon Dioxide 30 Anion Gap -1 L BUN 16 Creatinine 0.30 L Estim Creat Clear Calc 106 Estimated GFR > 60 Glucose 94 Calcium 9.8 Discharge Plan Discharge Attending physician on discharge: Diann Emanuel Consulting providers: Luis Dsila Discharging Clinician: Sheri Olivier Patient Disposition: Home Health Service Activity: follow weight bearing status Diet: regular Discharge Instructions: May shower. Remove all dressings by 2 weeks after surgery. Incisions are glued so no need to remove sutures. Keep a dressing on to prevent clothing from rubbing on incisions during the 1st 2 weeks. Maintain touch weight-bearing status. The n
--- NOTE | 2022-11-15 13:05 | PC.NURSE ---
There is a duplicate order for the oxycodone one was printed and the other was transmitted to the pharmacy electronically. Call was made to Darian Butler, he said to stop the printed medication and have them use the transmitted medication. It will not let me take out the order for the pain medication but the script that was printed was not given to the patient and was placed in the shred box for documents.
== END 2022-11-15 14:00 | disposition home health service (06) | DRG 482 ==
LOC: ANHED 07:15 → ANH2MED 07:42
PROVIDERS: Orthopaedic Surgery; Admitting Provider Internal Medicine; Emergency Provider Emergency Medicine; PCP Family Medicine; Visit Provider Internal Medicine Critical Care Medicine
PROC: 0QH734Z Insertion of Internal Fixation Device into Left Upper Femur, Percutaneous Approach (ICD-10-PCS; CPT 27245; principal; 2022-11-12 09:00)
DX: S72.142A Displaced intertrochanteric fracture of left femur, initial encounter for closed fracture (principal); W19.XXXA Unspecified fall, initial encounter; M16.0 Bilateral primary osteoarthritis of hip; M81.0 Age-related osteoporosis without current pathological fracture; I10 Essential (primary) hypertension
CPT/HCPCS: 36415; 51702; 71045; 73502; 80048; 80053; 81001; 82306; 85025; 85027; 85610; 85730; 86850; 86900; 86901; 93005; 96374; 96375; 97110; 97116; 97161; 97165; 97530; 97535; 99199; 99285; A9270; C1713; J0690; J1100; J1170; J2370; J2405; J2704; J2710; J3010; J3370; J7030; J7120

== ENCOUNTER 2024-07-11 09:33 | Emergency (ER) | payer MEDICARE, SELFPAY ==
[2024-07-11 09:59] VITALS: BP 160/93; PULSE 106; RESP 16; O2SAT 97
--- NOTE | 2024-07-11 10:11 | ED.DENTAL ---
HPI - Dental/Oral General Chief complaint: Dental/Oral Stated complaint: swollen lip Time Seen by Provider: 07/11/24 09:50 History of Present Illness HPI Narrative: patient is a 74-year-old female who presents ER with a swollen upper lip. Woke up this morning it was very enlarged. Had mild discomfort yesterday. Had a tooth fall out of her mouth 2 days ago. No difficulty breathing or swelling. No fevers or chills. Related Data Allergies Allergy/AdvReac Type Severity Reaction Status Date / Time No Known Allergies Allergy Verified 02/12/22 17:57 Review of Systems Constitutional: Constitutional: Reports no additional constitutional complaints ENT: Comments: Dental pain and upper lip swelling. 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 Surgical History Surgical History History of hip surgery right IT Nail 03/04 Family History Family History Daughter Colon cancer Other Unknown family medical history Social History Social History Smoking status: Never smoker Alcohol intake: never Substance use: never Substance use type: does not use Lack of Transportation: No Lack of Food: Never True Current Housing: I Have Housing Concerned About Future Housing: No Difficulty Paying Gas/Electric Bills: No Difficulty Paying for Meds: No Currently Unemployed: No Education: High School Diploma/GED Difficulty w/ Childcare or Family Care: No Living arrangements: with family Gender identity (if verbalized by the patient): Female Spiritual care concerns: No Exam Narrative: GENERAL: Well-appearing, well-nourished, and in no acute distress. HEAD: Normocephalic, atraumatic. ENT: Mucous membranes moist. Absent tooth 9. With significant swelling of the gum and lip. Abscess present and drained. NECK: Supple. EXTREMITIES: Normal range of motion. No edema. SKIN: Warm, dry, no rash. NEURO: Alert and oriented x3. PSYCH: Normal mood and affect. Course Course Emergency Course: Patient tolerated drainage. Will start on Augmentin. Discharge. Vital Signs Vital signs: Vital Signs Pulse Rate 106 H 07/11/24 09:59 Respiratory Rate 16 07/11/24 09:59 Blood Pressure 160/93 H 07/11/24 09:59 Pulse Oximetry 97 07/11/24 09:59 Pulse Rate 106 H 07/11/24 09:59 Respiratory Rate 16 07/11/24 09:59 Blood Pressure 160/93 H 07/11/24 09:59 Pulse Oximetry 97 07/11/24 09:59 Procedures Abscess I/D dental: Date of Incision: 07/11/24 Time of Incision: 10:11 Local Anesthetic: other anesthetic (Hurricaine [place]) Technique: incised with #11 blade Irrigation: No Packing used?: none I&D Results: Pus Discharge Plan Discharge Clinical Impression: Abscess, dental Patient Disposition: Home, Self-Care Condition: Stable Instructions: Dental Abscess (ED) Additional Instructions: Take the prescribed antibiotics. Return to the ER if you cannot breathe, you cannot swallow, or you have other concerns. Prescriptions: New hydrocodone-acetaminophen 5-325 mg tablet 1 tablet PO Q6H PRN (Reason: pain) Qty: 12 0RF amoxicillin-pot clavulanate 875-125 mg tablet 1 tablet PO Q12H Qty: 20 0RF No Action acetaminophen [Mapap (acetaminophen)] 325 mg Tablet 650 mg PO Q6H Qty: 100 0RF Eliquis 2.5 mg Tablet 2.5 mg PO Q12HR Qty: 65 0RF polyethylene glycol 3350 [Miralax] 17 gram Powder In Packet 17 g PO QAM Qty: 30 0RF ergocalciferol (vitamin D2) [Vitamin D2] 1,250 mcg (50,000 unit) Capsule 50,000 units PO WEEKLY Qty: 7 0RF sennosides-docusate sodium [Senokot-S] 8.6-50 mg Tablet 2 tab-cap PO BID Qty: 120 0RF calcium carbonate-vitamin D3 [Calcium 500 + D] 500 mg-10 mcg (400 unit) tablet 1 tablet PO BID Qty: 120 0RF oxycodone 5 mg tablet 2.5 mg PO Q4H PRN (Reason: pain) Qty: 20 0RF oxycodone 5 mg tablet 2.5 mg PO Q6H PRN (Reason: pain) Qty: 20 0RF Follow-up/Referrals: Bk,Latricia Nolan MD [Primary Care Provider] -
== END 2024-07-11 10:15 | disposition home or self-care (01) ==
LOC: ANHED 10:20
PROVIDERS: Emergency Provider Emergency Medicine; PCP Family Medicine
DX: K04.7 Periapical abscess without sinus (principal); Z79.01 Long term (current) use of anticoagulants
CPT/HCPCS: 41800; 99283; A9270

== ENCOUNTER 2025-03-09 11:58 | Emergency (ER) | payer MEDICARE, SELFPAY ==
--- NOTE | ~2025-03-09 | XR_ITS ---
HISTORY: Pain COMPARISON: None TECHNIQUE: 2 views of the tibia and fibula were performed FINDINGS: Diffuse bony demineralization is identified. No acute or subacute fracture. Joint spaces are preserved and alignment is maintained. Soft tissues are unremarkable without radiopaque foreign body or significant calcification. IMPRESSION: No acute fracture deformity as detailed above. Reviewed, dictated and finalized at location A.
--- NOTE | ~2025-03-09 | XR_ITS ---
HISTORY: Pain COMPARISON: None TECHNIQUE: 4 views of the right knee were performed FINDINGS: No acute or subacute fracture. Diffuse bony demineralization is identified. Medial and lateral tibiofemoral joint space narrowing is identified. Small suprapatellar joint effusion is identified. The infrapatellar joint space is clear. IMPRESSION: Degenerative disease and diffuse bony demineralization, without acute fracture Reviewed, dictated and finalized at location A. IMPRESSION: Degenerative disease and diffuse bony demineralization, without ac jose fracture
[2025-03-09 11:54] VITALS: BP 165/91; PULSE 95; RESP 20; TEMP 36.4; O2SAT 95
--- NOTE | 2025-03-09 12:57 | PC.NURSE ---
Pt had tick attached to her right ankle that was found after patient sock was removed. Tick suffocated with TUAN dela cruz and backed out.
--- NOTE | 2025-03-09 13:14 | ED_ITS ---
HPI - General Adult General Chief complaint: Extremity Injury, Lower Stated complaint: RLE pain Time Seen by Provider: 03/09/25 12:56 History of Present Illness HPI narrative: 74-year-old female presents to the emergency department for evaluation for right knee pain. Patient reports that she stumbled yesterday and caught herself from falling but states that she did injure the knee. Patient reports that knee only hurts when ambulating. At rest patient denies any pain. 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 Surgical History Surgical History History of hip surgery right IT Nail 03/04 Family History Family History Daughter Colon cancer Other Unknown family medical history Social History Social History Smoking status: Never smoker Alcohol intake: never Substance use: never Substance use type: does not use Lack of Transportation: No Lack of Food: Never True Current Housing: I Have Housing Concerned About Future Housing: No Difficulty Paying Gas/Electric Bills: No Difficulty Paying for Meds: No Currently Unemployed: No Education: High School Diploma/GED Difficulty w/ Childcare or Family Care: No Living arrangements: with family Gender identity (if verbalized by the patient): Female Spiritual care concerns: No Exam Narrative: APPEARANCE: Well appearing, no pain, no distress, well-nourished. HEAD: normocephalic, atraumatic. EYES: PERRLA/EOMI, conjunctivae clear. NOSE: Normal no drainage EARS:TMS clear with good light reflex. THROAT: Pharynx clear, no exudate. NECK: Supple. No adenopathy, no masses. RESPIRATORY: Airway patent, respirations nonlabored. Clear to auscultation bilaterally, no rales, rhonchi, wheezing. CARDIOVASCULAR: Regular rate and rhythm without murmurs rubs or gallops. ABDOMINAL: Soft, nontender, nondistended, normal bowel sounds MUSCULOSKELETAL: Right knee tenderness with no deformity, no ecchymosis, no edema NEURO: Alert. Cranial nerves II through XII intact. Good gait. Good coordination SKIN: Warm, dry. Normal Color Course Vital Signs Vital signs: Vital Signs Temperature 97.6 F 03/09/25 11:54 Pulse Rate 03/09/25 11:54 Respiratory Rate 03/09/25 11:54 Blood Pressure 165/91 H 03/09/25 11:54 Pulse Oximetry 03/09/25 11:54 Temperature 97.6 F 03/09/25 11:54 Pulse Rate 03/09/25 11:54 Respiratory Rate 03/09/25 11:54 Blood Pressure 165/91 H 03/09/25 11:54 Pulse Oximetry 03/09/25 11:54 Medical Decision Making MDM Narrative Medical decision making narrative: 74-year-old female present to ED for evaluation for right knee pain. Patient's knee and tib-fib x-rays were negative for acute fracture dislocation. Patient is provided knee immobilizer for comfort. Patient does use a cane for ambulation. Patient was encouraged close follow-up with her primary care physic flor. Patient was able to ambulate with a knee immobilizer. Patient was encouraged of close follow-up with her primary care physician provided outpatient information for Ortho follow-up. All questions concerns were addressed. Differential Diagnosis Differential Diagnosis: Knee fracture, knee contusion, internal derangement of the knee, ankle fracture Vital Signs Vital Signs: Vital Signs Temperature 97.6 F 03/09/25 11:54 Pulse Rate 03/09/25 11:54 Respiratory Rate 03/09/25 11:54 Blood Pressure 165/91 H 03/09/25 11:54 Pulse Oximetry 03/09/25 11:54 Temperature 97.6 F 03/09/25 11:54 Pulse Rate 03/09/25 11:54 Respiratory Rate 03/09/25 11:54 Blood Pressure 165/91 H 03/09/25 11:54 Pulse Oximetry 03/09/25 11:54 Imaging Data Radiologist's impression: Impressions Knee X-Ray 03/09/25 12:38 IMPRESSION: Degenerative disease and diffuse bony demineralization, without acute fracture Tibia/Fibula X-Ray 03/09/25 12:40 IMPRESSION: No acute fracture deformity as detailed above. Discharge Plan Discharge Clinical Impression: Acute internal derangement of knee Patient Disposition: Home Condition: Stable Instructions: Antibiotic Form, Knee Pain (ED), Knee Immobilizer (ED) Additional Instructions: Knee immobilizer for comfort while awake. Have close follow-up with Ortho pedics. If you have any worsening symptoms then please call or return to the emergency department. Patient Language: Luxembourgish Prescriptions: No Action acetaminophen [Mapap (acetaminophen)] 325 mg Tablet 650 mg PO Q6H Qty: 100 0RF Eliquis 2.5 mg Tablet 2.5 mg PO Q12HR Qty: 65 0RF polyethylene glycol 3350 [Miralax] 17 gram Powder In Packet 17 g PO QAM Qty: 30 0RF ergocalciferol (vitamin D2) [Vitamin D2] 1,250 mcg (50,000 unit) Capsule 50,000 units PO WEEKLY Qty: 7 0RF sennosides-docusate sodium [Senokot-S] 8.6-50 mg Tablet 2 tab-cap PO BID Qty: 120 0RF calcium carbonate-vitamin D3 [Calcium 500 + D] 500 mg-10 mcg (400 unit) tablet 1 tablet PO BID Qty: 120 0RF oxycodone 5 mg tablet 2.5 mg PO Q4H PRN (Reason: pain) Qty: 20 0RF oxycodone 5 mg tablet 2.5 mg PO Q6H PRN (Reason: pain) Qty: 20 0RF hydrocodone-acetaminophen 5-325 mg tablet 1 tablet PO Q6H PRN (Reason: pain) Qty: 12 0RF amoxicillin-pot clavulanate 875-125 mg tablet 1 tablet PO Q12H Qty: 20 0RF Follow-up/Referrals: Scotty Malone MD [Physician] - [facility],Latricia Nolan MD [Primary Care Provider] -
--- OUTSIDE RECORDS SUMMARY | 2025-03-09 13:18 | XMS_ITS | Data Portability ---
Author Organization [facility] [employer], Main Office Address [address] [place] [address] Care Team Providers Care Political Anthropologist Name Role Phone SATINDER BENJA Primary Care Provider BENJA RAJAN Referring Provider Assessment No assessment recorded. Plan of Treatment Reminders Order Date Submit Date Provider Last Modified By Organization Details Last Modified Time Details Appointments None record ed. Lab None record ed. Referral None record ed. Procedures None record ed. Surgeries None record ed. Imaging None record ed. Medication Orders None record ed. Patient TargetsNo targets recorded. Patient InstructionsNo instructions recorded. Reason for Referral None Reported. Results Created Date Observation Date Name Description Value Unit Range Abnormal Flag Note LastModifiedBy Organization Detail LastModifiedTime 02/13/20 22 02/12/2022 imagi ng/di agnos tic resul t No observ ation record ed. [id number], [address], 10/12/2022 18:55:01 02/13/20 22 02/12/2022 imagi ng/di agnos tic resul t No observ ation record ed. [id number], [address], 10/12/2022 18:55:01 02/13/20 22 02/12/2022 imagi ng/di agnos tic resul t No observ ation record ed. [id number], [address], 10/12/2022 18:55:01 02/14/20 22 02/13/2022 XR, hip + pelvi s, unila teral No observ ation record ed. MIGRATION.[id number] [place] [address] [address], [place], [address], 10/12/2022 18:55:01 02/14/20 22 02/13/2022 imagi ng/di agnos tic resul t No observ ation record ed. MIGRATION.[address] [place] [address] [address], [place], [address], 10/12/2022 18:55:01 02/14/20 22 02/13/2022 imagi ng/di agnos tic resul t No observ ation record ed. MIGRATION.[address] [place] [address] [address], [place], [address], 10/12/2022 18:55:01 02/14/20 22 02/13/2022 XR, hip + pelvi s, unila teral No observ ation record ed. MIGRATION.[address] [place] [address] [address], [place], [address], 10/12/2022 18:55:01 02/16/20 22 02/15/2022 imagi ng/di agnos tic resul t No observ ation record ed. MIGRATION.[address] [place] [address] [address], [place], [address], 10/12/2022 18:55:01 02/17/20 22 02/13/2022 imagi ng/di agnos tic resul t No observ ation record ed. [address]IGRATION.[address] [place] [address] [address], [place], [address], 10/12/2022 18:55:01 03/11/20 22 XR, hip, unila teral No observ ation record ed. MIGRATION.[address] [place] [address] [facility] [place] [address] [facility] [address], [place], [address], 10/12/2022 18:55:01 04/13/20 22 XR, hip + pelvi s, unila teral No observ ation record ed. [id number] [facility] [place] [address] [facility] [address], [place], [address], 10/12/2022 18:55:01 11/13/19 23 11/12/2022 XR, hip, unila teral No observ ation record ed. [email or web address] [address], [place], [address], 11/29/2022 14:13:39 11/13/19 23 11/12/2022 XR, chest No observ ation record ed. [address], [place], [address], 11/14/2022 09:03:51 11/13/19 23 11/12/2022 XR, hip + pelvi s, unila teral No observ ation record ed. [email or web address] [address], [place], [address], 11/14/2022 12:26:51 11/13/19 23 11/12/2022 XR, chest No observ ation record ed. [address], [place], [address], 11/14/2022 09:03:59 11/13/19 23 11/12/2022 XR, chest No observ ation record ed. [address], [place], [address], 11/14/2022 09:04:05 03/09/20 25 03/09/2025 imagi ng/di agnos tic resul t No observ ation record ed. [address], [place], [address], 03/09/2025 13:44:12 03/09/20 25 03/09/2025 imagi ng/di agnos tic resul t No observ ation record ed. [address] [place], [address], 03/09/2025 13:45:23 Result Notes None recorded. Problems Name Problem SNOMED Code Status Onset Date Resolution Date Notes Provider Name and Address Organization Details Recorded Time Hypertensi ve disorder 26816185 Active 2016 Not Available [facility] 3 18:54:01 Closed fracture of right femur 3250132106525 9103 Active 2021 Not Available [facility] 3 18:54:01 Osteoporos is 32716196 Active 2022 Janeth Saavedra, [employer] MANAGER null, [place] [facility] [place] [employer] 3 16:36:23 Problem Notes None recorded. Procedures Surgical History Date Name Laterality Status Provider Name and Address Organization Details Recorded Time Hip surgery completed Not Available [facility] 10/12/2022 18:53:08 Imaging Results None recorded. Procedure Notes None recorded. Medical Equipment None Reported. Medications Name Sig Start Date Stop Date Status Note LastModified by Organization Details LastModified Time lisinopril 20 mg tablet Take 1 tablet every day by oral route for 90 days. 04/13 completed Not Available Not Available Not Available acetaminophe n 300 mg-codeine 30 mg tablet Take 1 tablet 3 times a day by oral route as needed for 10 days. 04/13 completed Not Available Not Available Not Available meloxicam 7.5 mg tablet Take 1 tablet every day by oral route in the morning for 90 days. 04/13 completed Not Available Not Available Not Available baclofen 10 mg tablet Take 1 tablet 3 times a day by oral route as needed for 30 days. 01/28 completed Not Available Not Available Not Available ergocalcifer ol (vitamin D2) 1,250 mcg (50,000 unit) capsule TAKE 1 CAPSULE BY MOUTH EVERY MONDAY AND 04/13 completed Not Available Not Available Not Available naproxen 500 mg tablet Take 1 tablet twice a day by oral route as needed for 30 days. 01/28 completed Not Available Not Available Not Available diazepam 5 mg tablet TK 1 T PO BID PRN FOR SPASMS 01/19 completed Not Available Not Available Not Available oxycodone 5 mg tablet TAKE 1/2 TABLET BY MOUTH EVERY 6 HOURS NEEDED FOR PAIN active Not Available Not Available No t Available Eliquis 2.5 mg tablet TAKE 1 TABLET BY MOUTH EVERY 12 HOURS active Not Available Not Available No t Available Stimulant Laxative Plus 8.6 mg-50 mg tablet TAKE 2 TABLETS BY MOUTH TWICE DAILY 04/13 completed Not Available Not Available Not Available Vitals None Recorded Social History None recorded. Functional Status None recorded. Mental Status None recorded. Family History Relationship Description Onset Age of this Age Resolved Age Notes LastModified by Organization Details LastModified Time Father Family history of stroke [id number] Not available 10/12/2022 18:53:09 Medical History Condition Response BLINDNESS N KIDNEY STONES N MRSA N CARPAL TUNNEL SYNDROME N LUNG DISEASE/DISORDER N HISTORY OF DRUG ABUSE N COPD N RADIATION / CHEMOTHERAPY N SPORTS INJURY N ANKLE PAIN N BLOOD DISEASES N SCHIZOPHRENIA N SHINGLES N SHOULDER PAIN N DEPRESSION (INCLUDING POST ) N BOWEL PROBLEMS N STROKE/TIA N KNEE PAIN N ULCERS N BENIGN PROSTATIC HYPERPLASIA N OBESITY N GERD/NAUSEA N ANEURYSM N URINARY/BLADDER/KIDNEY PROBLEMS N CORONARY ARTERY DISEASE (CAD) N ADDICTION CONCERNS N USE OF BLOOD THINNERS N SKIN PROBLEMS N EMPHYSEMA N MUSCLE,JOINT OR BONE PROBLEMS N DVT N STOMACH ULCERS N BLOOD CLOTS N USE OF NSAIDS N CONCUSSION OR SPINAL TRAUMA N NEUROPATHY N AIDS/HIV N FRACTURES N HYPERTENSION N ELBOW PAIN N TOURETTE'S N Metal allergy N ANXIETY DISORDER N BLOOD TRANSFUSION N ANEMIA/BLOOD DISORDER N BIPOLAR DISORDER N BRONCHITIS N OSTEOARTHRITIS N TUBERCULOSIS N FOOT PROBLEM N HEART VALVE DISORDERS N ALLERGIES/HAYFEVER N SOFT TISSUE INJURY N INFECTIOUS DISEASE N HEART ARRHYTHMIA N INSOMNIA N HIGH CHOLESTEROL / HYPERLIPIDEMIA N RHEUMATOID ARTHRITIS N EDEMA N CHRONIC PAIN SYNDROME N CAROTID BLOCKAGE N BACK / NECK PROBLEMS N HAVE YOU BEEN HOSPITALIZED OR SEEN IN [facility] ER IN THE PAST YEAR ? N BURSITIS N HERNIATED DISC N DIALYSIS N FIBROMYALGIA N OSTEOPOROSIS N ARTHRITIS Y NO SIGNIFICANT PAST MEDICAL HISTORY N PERIPHERAL NEUROPATHY N DIABETES, TYPE N HEARTBURN / REFLUX N HEPATITIS / LIVER DISEASE N GOUT N ALZHEIMER'S DISEASE N SLEEP DISORDER N HERPES N HEADACHES/MIGRAINES N SEIZURES/EPILEPSY N VASCULAR DISEASE N Blood Disorder N HIP PAIN N DIZZINESS N HEAD TRAUMA OR INJURY N HEART DISEASE/HEART PROBLEMS N MULTIPLE SCLEROSIS N CANCER: SPECIFY N CARDIAC ARRHYTHMIA N ANESTHESIA COMPLICATIONS N ATRIAL FIBRILLATION N AUTOIMMUNE DISEASE N Gynecological HistoryNo gynecological history recorded. Obstetrics History GPAL:G 0 P 0 0 0 0 Past Encounters Encounter ID Performer Location Encounter Start Date Encounter Closed Date Diagnosis/Indication Diagnosis SNOMED-CT Code Diagnosis ICD10 Code Diagnosis Note [id number] Luis Disla MD [facility] [place] [address] [facility] [address] [place] [id number] 03/11/2022 00:00:00 03/11/2022 12:34:42 [id number] Luis Disla MD [facility] [place] [address] [place] [id number] 04/13/2022 00:00:00 04/13/2022 11:43:26 Health Concerns Section Related Observation LastModified by Organization Detai ls LastModified Time None Recorded Concern Status LastModified by Organization Details LastModified Time None Recorded Advance Directives Directive None Recorded Payers Insurance Date Sequence Insurance Name Policy Number Policy Monteiro Covered Member ID Monteiro Member ID Guarantor Name 02/11/2023 1 [facility] (MEDICARE REPLACEMENT/A DVANTAGE - HMO) [id number] Elizabeth Moran [id number] Elizabeth Moran OBGyn Episode No OBEpisode recorded.
== END 2025-03-09 13:56 | disposition home or self-care (01) ==
PROVIDERS: Emergency Provider Emergency Medicine; PCP Family Medicine
DX: M23.91 Unspecified internal derangement of right knee (principal); S89.91XA Unspecified injury of right lower leg, initial encounter; W18.40XA Slipping, tripping and stumbling without falling, unspecified, initial encounter
CPT/HCPCS: 73564; 73590; 99284